=== PATIENT | female | born 1995 | race African-American/Black ===

== ENCOUNTER 2019-12-16 13:10 | Outpatient (CLI) | payer OTHER, SELFPAY ==
[2019-12-16 14:45] LABS: HIV 1/2 Ab P24 Ag Result Negative (Negative)
[2019-12-16 14:49] LABS: Hepatitis B Surface Antigen Negative (Negative)
[2019-12-16 14:55] LABS: HAV RESULT Negative (Negative); Hepatitis B Core IgM Result Negative (Negative)
[2019-12-16 15:06] LABS: Hepatitis C Virus Antibody Negative (Negative)
[2019-12-17 08:21] LABS: Rapid Plasma Reagin Non-Reactive (NonReactive)
== END 2019-12-16 13:11 | disposition home or self-care (01) ==
LOC: ANHLAB 13:14
PROVIDERS: PCP Internal Medicine; Visit Provider Obstetrics & Gynecology
DX: Z11.3 Encounter for screening for infections with a predominantly sexual mode of transmission (principal)
CPT/HCPCS: 36415; 80074; 86592; 86703; G0432

== ENCOUNTER 2020-05-12 16:08 | Emergency (ER) | payer OTHER, SELFPAY ==
--- NOTE | ~2020-05-12 | CT_ITS ---
EXAMINATION: CT cervical spine wo con DATE: 05/12/2020 17:13 INDICATION: Neck pain TECHNIQUE: Computed tomography (CT) of the cervical spine was performed without intravenous contrast. The dose-length product (DLP) was 531.48 mGy-cm. Automated exposure control and iterative reconstruc tion technique were employed. COMPARISON: 10/19/2014 FINDINGS: There is no fracture, dislocation, or subluxation. The vertebral body heights, alignment, a nd intervertebral disc spaces are normal. The paravertebral soft tissues are unremarkable. The odonto id is intact. IMPRESSION: 1. Normal cervical spine. Reviewed, dictated and finalized at location A. H PATCHER IMPRESSION: 1. Normal cervical spine.
--- NOTE | ~2020-05-12 | XR_ITS ---
EXAMINATION: XR knee RT 3V DATE: 05/12/2020 17:01 INDICATION: Right knee pain TECHNIQUE: Three views of the right knee were obtained. COMPARISON: None. FINDINGS: Alignment is normal. No fracture or osteochondral lesion. Joint spaces are normal with no e rosions. No joint effusion/synovitis. Infrapatellar soft tissue swelling is present. IMPRESSION: 1. No acute osseous abnormality. Reviewed, dictated and finalized at location A. ORAL COUNSELOR
--- NOTE | ~2020-05-12 | XR_ITS ---
EXAMINATION: XR chest 2V DATE: 05/12/2020 17:01 INDICATION: Chest pain TECHNIQUE: PA and lateral views of the chest are obtained. COMPARISON: 03/11/2013 FINDINGS: The lungs are free of acute opacities. There is no pleural effusion or pneumothorax. The ca rdiomediastinal silhouette is normal. The visualized bones and soft tissues are unremarkable. IMPRESSION: 1. No acute cardiopulmonary abnormality. Reviewed, dictated and finalized at location A. O ELECTRIC STATION OPERATOR
[2020-05-12 16:19] VITALS: BP 125/78; PULSE 73; RESP 18; TEMP 36.4; O2SAT 100
[2020-05-12] MEDS: diazePAM (*CRX) 5 MG TABLET PO (16:53)
[2020-05-12] MEDS: IBUPROFEN 600 MG TABLET PO (16:53)
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
== END 2020-05-12 18:04 | disposition home or self-care (01) ==
PROVIDERS: Emergency Provider Emergency Medicine; PCP Internal Medicine
DX: S16.1XXA Strain of muscle, fascia and tendon at neck level, initial encounter (principal); S29.012A Strain of muscle and tendon of back wall of thorax, initial encounter; S80.01XA Contusion of right knee, initial encounter; V48.5XXA Car driver injured in noncollision transport accident in traffic accident, initial encounter
CPT/HCPCS: 71046; 72125; 73562; 99284; A9270

== ENCOUNTER 2020-10-14 20:38 | Emergency (ER) | payer OTHER, SELFPAY ==
[2020-10-14 20:42] VITALS: BP 136/85; PULSE 92; RESP 17; TEMP 36.9; O2SAT 95
--- NOTE | 2020-10-14 20:50 | PC.NURSE ---
Patient states that her boyfriend cheated on her and was diagnosed with an STD and she went to get tested and was negative. Patient states she now has a bump on her vagina. Patient states she did not have any symptoms when she got tested and the results were negative on 09/27/20.
--- NOTE | 2020-10-14 21:34 | ED.GENADULT ---
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 Patient states that she found out her boyfriend have been cheating on her and had been diagnosed with syphilis in the beginning of September she been tested for syphilis as well as other STDs on September 24 that all come back normal she been told to watch for any signs of herpes or any vaginal lesions she states that yesterday she began to notice 2 small lesions on her left inferior labia that were tender and were initially bumps and are now small areas of induration she states they are tender she denies any other vaginal discharge states she is on her menstrual period. She states that her syphilis test and other STD tests all come back negative Related Data Allergies Allergy/AdvReac Type Severity Reaction Status Date / Time No Known Allergies Allergy Verified 10/14/20 20:40 Review of Systems Review of Systems: Narrative: Gen.: Denies fevers or chills ENT: Denies congestion Respiratory: Denies shortness of breath CV: Denies chest pain GI: Denies abdominal pain nausea, emesis see HPI Musculoskeletal: Denies back pain or muscle pain Neuro: Denies headache or weakness Skin: See HPI Except as documented, all other systems reviewed and negative [facility] Past Medical History Medical History (Updated 10/14/20 @ 21:38 by Sukhdeep Maldonado DO) Patient denies significant medical history Social History Social History Smoking status: Never smoker Gender identity (if verbalized by the patient): Female Exam Narrative: Exam Narrative: APPEARANCE: No acute distress, nontoxic, resting in bed EYES: EOMI HEENT: Normocephalic, atraumatic, OMM RESPIRATORY: No respiratory distress Clear to auscultation bilaterally with no rhonchi wheezing or rales. CARDIOVASCULAR: Regular rate and rhythm without murmurs rubs or gallops. ABDOMINAL: Soft, nontender, nondistended, no rebound or guarding : External exam shows 2 small ulcerations in the inferior labia that are tender to palpation the do look consistent with herpes no other lesions seen, document blood in vaginal canal secondary to menstrual cycle no other discharge noted MUSCULOSKELETAl: Moves all extremities. No clubbing, cyanosis or edema. NEURO: Awake and alert. Following commands, speech normal, no focal deficits SKIN:: Warm, dry. 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 Pradhan Discussed with patient results of workup and diagnosis. Discussed need for follow-up with primary care, proper use of medication, and reasons to return to the emergency department. Patient understands and agrees to current treatment plan Vital Signs Vital signs: Vital Signs Temperature 98.5 F 10/14/20 20:42 Pulse Rate 92 10/14/20 20:42 Respiratory Rate 17 10/14/20 20:42 Blood Pressure 136/85 10/14/20 20:42 Pulse Oximetry 95 10/14/20 20:42 Temperature 98.5 F 10/14/20 20:42 Pulse Rate 92 10/14/20 20:42 Respiratory Rate 17 10/14/20 20:42 Blood Pressure 136/85 10/14/20 20:42 Pulse Oximetry 95 10/14/20 20:42 Medical Decision Making Vital Signs Vital Signs: Vital Signs Temperature 98.5 F 10/14/20 20:42 Pulse Rate 92 10/14/20 20:42 Respiratory Rate 17 10/14/20 20:42 Blood Pressure 136/85 10/14/20 20:42 Pulse Oximetry 95 10/14/20 20:42 Temperature 98.5 F 10/14/20 20:42 Pulse Rate 92 10/14/20 20:42 Respiratory Rate 17 10/14/20 20:42 Blood Pressure 136/85 10/14/20 20:42 Pulse Oximetry 95 10/14/20 20:42 Lab Data Labs: UCG Bedside Result Negative
[2020-10-14] MEDS: valACYclovir HCL 500 MG TABLET 1000 MG PO (21:51)
[2020-10-14 21:56] VITALS: BP 128/82; PULSE 68; RESP 20; TEMP 36.6; O2SAT 100
== END 2020-10-14 21:55 | disposition home or self-care (01) ==
PROVIDERS: Emergency Provider Emergency Medicine; PCP Internal Medicine
DX: A60.00 Herpesviral infection of urogenital system, unspecified (principal)
CPT/HCPCS: 81025; 87255; 99283; A9270

== ENCOUNTER 2020-12-20 12:28 | Emergency (ER) | payer OTHER, SELFPAY ==
[2020-12-20 12:50] VITALS: BP 111/80; PULSE 61; RESP 18; TEMP 36.1; O2SAT 100
[2020-12-20 13:19] LABS: Basophils Percent Auto 0.3 % (0.2-1.2); Eosinophils Percent Auto 0.4 % (0-4.4); Hematocrit 41.2 % (37.0-47.0); Hemoglobin 13.5 g/dL (12.0-15.0); Immature Granulocyte Absolute 0.04 K/mm3 (0.00-0.031); Immature Granulocyte Percent A 0.4 % (0-0.5); Lymphocytes Absolute Auto 2.16 K/mm3 (0.9-3.2); Lymphocytes Percent Auto 20.1 % (18.3-44.2); Mean Corpuscular HGB Conc 32.8 g/dl (32-36); Mean Corpuscular Hemoglobin 30.6 pg (26-34); Mean Corpuscular Volume 93.4 fl (80-100); Mean Platelet Volume 10.4 fl (7.4-10.4); Monocytes Absolute Auto 0.6 K/mm3 (0.1-0.6); Monocytes Percent Auto 5.7 % (2.6-8.5); Neutrophils Absolute Auto 7.9 K/mm3 (1.3-6.7); Neutrophils Percent Auto 73.1 % (45.5-73.1); Platelet Count Result 304 k/mm3 (150-375); Red Blood Count 4.41 M/mm3 (4.2-5.4); Red Cell Distribution Width 12.5 % (11.5-14.5); White Blood Count 10.7 K/mm3 (4.5-10.0)
[2020-12-20 13:35] LABS: Alanine Aminotransferase 16 U/L (4-35); Albumin Level 4.3 g/dL (3.5-5.1); Alkaline Phosphatase 87 U/L (38-126); Anion Gap 7 mmol/L (8-16); Aspartate Amino Transferase 22 U/L (14-36); Bilirubin,Total 0.7 mg/dL (0.2-1.3); Blood Urea Nitrogen 8 mg/dL (7-17); Calcium 9.1 mg/dL (8.4-10.2); Carbon Dioxide 21 mmol/L (22-30); Chloride 107 mmol/L (98-107); Estimated CRCL calculation 133 ml/min; Estimated Glomerular Filt Rate > 60; Glucose 91 mg/dL (65-110); Lipase 74 U/L (23-300); Potassium 3.9 mmol/L (3.4-5.0); Sodium 135 mmol/L (137-145)
[2020-12-20 13:46] LABS: Add Urine Microscopic? YES; Appearance Urine Clear (Clear); Bacteria Urine Trace /hpf; Bilirubin Urine Negative (Negative); Blood Urine Negative (Negative); Color Urine Yellow (Yellow); Glucose Urine UA Negative (Negative); Ketones Urine Negative (Negative); Leukocyte Esterase Ur Negative LEU/UL (Negative); Mucus Urine Rare /lpf; Nitrate Urine Negative (Negative); Protein Urine Negative (Negative); RBC Urine 0-2 /hpf (0-2); Specific Grav Ur 1.023 (1.001-1.035); Squamous Epithelial Cell Urine Rare /hpf (Few); WBC Urine 0-3 /hpf
--- NOTE | 2020-12-20 13:59 | PC.NURSE ---
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 I will have to come back later. Pt walked out the door with steady gait.
== END 2020-12-20 13:59 | disposition left against medical advice (07) ==
PROVIDERS: Emergency Provider Emergency Medicine; PCP Internal Medicine
DX: R10.9 Unspecified abdominal pain (principal)
CPT/HCPCS: 36415; 80053; 81001; 81025; 83690; 85025; 96365; 96375; 99199; 99284

== ENCOUNTER 2020-12-20 15:44 | Emergency (ER) | payer OTHER, SELFPAY ==
--- NOTE | ~2020-12-20 | US_ITS ---
EXAMINATION: US OB <= 14 weeks fetus DATE: 12/20/2020 17:55 INDICATION: Abdominal pain during first trimester of . TECHNIQUE: Real-time pelvic ultrasound utilizing transabdominal probe was performed. The jamie herrera radiologist was not present for the study. COMPARISON: None. FINDINGS: The uterus measures 8.5 x 4.5 x 5.6 cm. There is an intrauterine gestational sac with double decidua sign but no evident yolk sac or pole identified. The mean sac diameter measures 1.5 cm, which correlates with an estimated gestational age of 6 weeks and 1 days. The right ovary measures 2.2 x 2.0 x 1.3 cm. The left ovary measures 2.7 x 2.0 x 2.4 cm. There is no free fluid in the pelvis. IMPRESSION: 1. Intrauterine gestational sac with no evident yolk sac or pole likely due to early stage of p regnancy. 2. Gestational age by ultrasound based on mean sac diameter of 6 weeks 1 day(s) +/- 4 day(s) with ul trasound estimated date of delivery ([facility]) of 08/14/2021. Reviewed, dictated and finalized at location A. IMPRESSION: 1. Intrauterine gestational sac with no evident yolk sac or pole likely d ue to early stage of . 2. Gestational age by ultrasound based on mean sac diameter of 6 weeks 1 day(s ) +/- 4 day(s) with ultrasound estimated date of delivery ([place]E) of 08/14/2021.
[2020-12-20 15:46] VITALS: BP 131/85; PULSE 87; RESP 16; TEMP 37.3; O2SAT 97
--- NOTE | 2020-12-20 17:44 | ED.NAVMDI ---
HPI - Nausea/Vomiting/Diarrhea General Chief complaint: Nausea/Vomiting/Diarrhea Stated complaint: abd pain, return from earlier Time Seen by Provider: 12/20/20 17:17 Source: RN notes reviewed History of Present Illness HPI Narrative: Patient presents to emergency department from home for nausea vomiting. Patient states that she has been having nausea vomiting for the past 2 days been associated with abdominal pain that is located around the umbilicus described as aching in nature patient states she is had no diarrhea she denies any fever chills chest pain or shortness of breath. Patient states she does have a possibility of being she had been seen here earlier today and had to leave prior to being seen and returned this evening for further evaluation she states she took no medications at home for the symptoms. Patient states last menstrual cycle was in early November Related Data Allergies Allergy/AdvReac Type Severity Reaction Status Date / Time No Known Allergies Allergy Verified 12/20/20 17:27 Review of Systems Review of Systems: Gen.: Denies fevers or chills ENT: Denies congestion Respiratory: Denies shortness of breath or cough CV: Denies chest pain or palpitations GI: See HPI denies burning, urgency, frequency or hematuria Musculoskeletal: Denies back pain or muscle pain Neuro: Denies numbness, tingling, weakness or focal weakness Skin: Denies rash Except as documented, all other systems reviewed and negative [facility] Past Medical History Medical History Patient denies significant medical history Social History Social History Smoking status: Never smoker Gender identity (if verbalized by the patient): Female Exam Narrative: APPEARANCE: No acute distress, nontoxic, resting in bed HEENT: Normocephalic, atraumatic, OMM RESPIRATORY: No respiratory distress, clear to auscultation bilaterally with no rhonchi wheezing or rales CARDIOVASCULAR: RRR s murmur ABDOMINAL: Soft nondistended tender to palpation in periumbilical region no hernias palpated, no tenderness right upper quadrant, left upper quadrant, right lower quadrant left lower quadrant no rebound or guarding MUSCULOSKELETAl: Moves all extremities. No clubbing, cyanosis or edema. NEURO: Awake and alert. Following commands, speech normal, no focal deficits SKIN:: Warm, dry. Normal Color PSYCHIATRIC: Normal affect/mood Course Course Emergency Course: Reviewed patient's records from her visit earlier today positive bedside at that time. Patient denies any vaginal bleeding Patient states she is feeling much better at this time repeat abdominal exam is soft nontender patient able to drink in ED with no emesis Discussed with Dr. Jaden Pradhan presentation work-up agrees with plan for discharge to follow-up as an outpatient there is a plan for Phenergan at home Patient states that they are feeling much better at this time. States abdominal pain has resolved. Repeat abdominal exam shows the patient's abdomen to be soft and nontender. Discussed with patient results of workup and diagnosis. Discussed need for follow-up with primary care physician, reasons to return to the emergency department in proper use of medication. Patient understands and agrees to current treatment plan Vital Signs Vital signs: Vital Signs Temperature 99.2 F 12/20/20 15:46 Pulse Rate 87 12/20/20 15:46 Respiratory Rate 16 12/20/20 15:46 Blood Pressure 131/85 12/20/20 15:46 Pulse Oximetry 97 12/20/20 15:46 Temperature 99.2 F 12/20/20 15:46 Pulse Rate 87 12/20/20 15:46 Respiratory Rate 16 12/20/20 15:46 Blood Pressure 131/85 12/20/20 15:46 Pulse Oximetry 97 12/20/20 15:46 MDM - Nausea/Vomiting/Diarrhea Lab Data Labs: Lab Results 12/20/20 Range/Units 17:57 Urine Test Positive Imaging Data [facility]iol[facility]
[2020-12-20] MEDS: SODIUM CHLORIDE 0.9% IV 1,000 ML 999 ML IV CONT (18:03)
[2020-12-20] MEDS: PROMETHAZINE HCL 25 MG/ML AMPUL 12.5 MG IV PUSH (18:03)
--- NOTE | 2020-12-20 18:16 | PC.NURSE ---
first saida iv tylenol dropped by rn
[2020-12-20 18:21] LABS: Pregnancy On Board Control Positive; Urine Pregnancy Test Positive
[2020-12-20] MEDS: FAMOTIDINE 20 MG/2 ML VIAL IV PUSH (19:15)
[2020-12-20 20:40] VITALS: BP 126/80; PULSE 84; RESP 16; TEMP 36.8; O2SAT 99
== END 2020-12-20 20:40 | disposition home or self-care (01) ==
PROVIDERS: Emergency Provider Emergency Medicine; PCP Internal Medicine
DX: O21.9 Vomiting of pregnancy, unspecified (principal); O26.891 Other specified pregnancy related conditions, first trimester; R10.33 Periumbilical pain; Z3A.01 Less than 8 weeks gestation of pregnancy
CPT/HCPCS: 36415; 76801; 80053; 81001; 81025; 83690; 84702; 85025; 96365; 96375; 99199; 99284; J0131; J2550; J7030

== ENCOUNTER 2021-02-28 15:39 | Outpatient (CLI) | payer OTHER, SELFPAY ==
[2021-03-07 14:29] LABS: HSV 1 IgM Screen Negative (Negative); HSV 2 IgM Screen Negative (Negative)
== END 2021-02-28 15:40 | disposition home or self-care (01) ==
LOC: ANHLAB 15:41
PROVIDERS: PCP Internal Medicine; Visit Provider Obstetrics & Gynecology
DX: Z11.3 Encounter for screening for infections with a predominantly sexual mode of transmission (principal)
CPT/HCPCS: 36415; 86695; 86696

== ENCOUNTER 2021-03-31 14:28 | Observation (INO) | payer OTHER, SELFPAY ==
[2021-03-31] VITALS (7 sets, daily range): BP systolic 113; BP diastolic 59; PULSE 72–86; O2SAT 100; BMI 43.9
--- NOTE | 2021-03-31 15:50 | OBADM ---
This patient, Nubia Yeager, admitted to the OB room OB Post 116 for observation. Patient/family oriented to hospital policies and general routines including ID bracelet, bed and alarms, visiting hours, pain management, procedures, bathroom and other care routines, personal items, smoking policy, room service/diet, and visiting hours. Patient/Family are encouraged to report perceived risks to care and to ask questions if they do not understand what they are told or what they should do.
--- NOTE | 2021-03-31 16:05 | PC.NURSE ---
1535--Dr. Pradhan at bedside. Plan of care discussed-US discussed. PT reports bleeding has stopped and is scheduled for an US in office on Friday. Pt reminded to call/come in to hospital if bleeding starts again.
--- NOTE | 2021-04-10 16:25 | PM.OBTRLD ---
OB - Triage/Final Diagnosis Visit Information Reason for evaluation: threatened labor Comments/Additional reasons for admission: I have assessed the risk for this patient, Nubia Yeager, and determined that she would benefit from observation care.
== END 2021-03-31 16:16 | disposition home or self-care (01) ==
LOC: ANHOBPP 14:54
PROVIDERS: Admitting Provider Obstetrics & Gynecology; PCP Internal Medicine; Visit Provider Obstetrics & Gynecology
DX: O47.9 False labor, unspecified (principal); Z3A.00 Weeks of gestation of pregnancy not specified
CPT/HCPCS: G0378; G0379

== ENCOUNTER 2021-04-12 08:28 | Outpatient (CLI) | payer OTHER, SELFPAY ==
[2021-04-12 10:21] LABS: Hematocrit 34.2 % (37.0-47.0); Hemoglobin 11.9 g/dL (12.0-15.0); Mean Corpuscular HGB Conc 34.8 g/dl (32-36); Mean Corpuscular Hemoglobin 32.9 pg (26-34); Mean Corpuscular Volume 94.5 fl (80-100); Mean Platelet Volume 10.4 fl (7.4-10.4); Platelet Count Result 250 k/mm3 (150-375); Red Blood Count 3.62 M/mm3 (4.2-5.4); White Blood Count 16.1 K/mm3 (4.5-10.0)
[2021-04-12 10:36] LABS: Creatinine Urine 142.9 mg/dL; Total Protein Urine Random 7 mg/dL; Ur Ttl Prot Creatinine Ratio 0.05 mg/mg (0-0.20)
[2021-04-12 10:36] LABS: Alanine Aminotransferase 11 U/L (4-35); Albumin Level 3.7 g/dL (3.5-5.1); Alkaline Phosphatase 70 U/L (38-126); Anion Gap 7 mmol/L (8-16); Aspartate Amino Transferase 18 U/L (14-36); Bilirubin,Total 0.3 mg/dL (0.2-1.3); Blood Urea Nitrogen 7 mg/dL (7-17); Calcium 8.6 mg/dL (8.4-10.2); Carbon Dioxide 19 mmol/L (22-30); Chloride 105 mmol/L (98-107); Estimated Glomerular Filt Rate > 60; Glucose 134 mg/dL (65-110); Glucose 1 Hour PP 50gm Dose 134 mg/dL; Lactate Dehydrogenase 391 U/L (313-618); Potassium 3.7 mmol/L (3.4-5.0); Sodium 131 mmol/L (137-145)
[2021-04-12 11:11] LABS: Hepatitis B Surface Antigen Negative (Negative)
[2021-04-12 11:14] LABS: HIV 1/2 Ab P24 Ag Result Negative (Negative)
[2021-04-12 16:30] LABS: Rubella IgG Antibody > 120.0 IU/ML
[2021-04-13 06:39] LABS: Rapid Plasma Reagin Non-Reactive (NonReactive)
[2021-04-15 18:39] LABS: CMV IgG Antibody >10.00 U/mL (<0.60)
[2021-04-17 12:52] LABS: Varicella IgG Antibody <135.00 Index (>=165.00)
[2021-04-22 14:28] LABS: CF Result NEGATIVE (NEGATIVE); Ethnicity NG
== END 2021-04-12 08:29 | disposition home or self-care (01) ==
PROVIDERS: PCP Internal Medicine; Visit Provider Obstetrics & Gynecology
DX: Z34.92 Encounter for supervision of normal pregnancy, unspecified, second trimester (principal)
CPT/HCPCS: 36415; 80053; 81220; 81329; 82570; 82947; 83615; 84156; 84550; 84702; 85027; 86592; 86644; 86695; 86696; 86703; 86747; 86762; 86787; 86850; 86900; 86901; 87086; 87340; G0432

== ENCOUNTER 2021-06-25 17:11 | Outpatient (RCR) | payer OTHER, SELFPAY ==
[2021-06-25 18:15] VITALS: BP 108/64; PULSE 88
== END 2021-09-17 08:59 | disposition home or self-care (01) ==
LOC: ANHOBOP 17:11
PROVIDERS: PCP Internal Medicine; Visit Provider Obstetrics & Gynecology
DX: O36.8130 Decreased fetal movements, third trimester, not applicable or unspecified (principal); Z3A.32 32 weeks gestation of pregnancy
CPT/HCPCS: 36415; 59025; 85461

== ENCOUNTER 2021-07-05 10:28 | Outpatient (RCR) | payer OTHER, SELFPAY ==
[2021-07-04 11:53] LABS: Hematocrit 36.7 % (37.0-47.0); Hemoglobin 12.2 g/dL (12.0-15.0); Mean Corpuscular HGB Conc 33.2 g/dl (32-36); Mean Corpuscular Volume 96.3 fl (80-100); Mean Platelet Volume 10.2 fl (7.4-10.4); Platelet Count Result 247 k/mm3 (150-375); Red Blood Count 3.81 M/mm3 (4.2-5.4); Red Cell Distribution Width 12.5 % (11.5-14.5); White Blood Count 14.4 K/mm3 (4.5-10.0)
[2021-07-04 12:24] LABS: Glucose 1 Hour PP 50gm Dose 124 mg/dL
[2021-07-04 14:30] LABS: HIV 1/2 Ab P24 Ag Result Negative (Negative)
[2021-07-05] MEDS: RHO(D) IMMUNE GLOBULIN 300 MCG/2 ML SYRINGE IM (11:50)
== END 2021-07-05 11:00 | disposition home or self-care (01) ==
LOC: ANHLAB 10:28
PROVIDERS: PCP Internal Medicine; Visit Provider Obstetrics & Gynecology
DX: Z11.4 Encounter for screening for human immunodeficiency virus [HIV] (principal); Z29.13 Encounter for prophylactic Rho(D) immune globulin; O36.0190 Maternal care for anti-D [Rh] antibodies, unspecified trimester, not applicable or unspecified; Z3A.00 Weeks of gestation of pregnancy not specified
CPT/HCPCS: 36415; 82947; 85027; 85461; 86703; 90384; 96372; G0432; J2790

== ENCOUNTER 2021-08-09 18:25 | Inpatient (IN) | payer OTHER, SELFPAY ==
[2021-08-09] VITALS (15 sets, daily range): BP systolic 111–136; BP diastolic 72–93; PULSE 69–84; BMI 49.1
--- NOTE | 2021-08-09 18:47 | LDADM ---
This patient, Nubia Yeager, was admitted to Labor/Delivery/Recovery 109 on 08/09/21 at 18:25. Plans for labor, pain management and were discussed with patient. Patient/family oriented to hospital policies and general routines including ID bracelet, bed and alarms, visiting hours, pain management, procedures, bathroom and other care routines, personal items, smoking policy, room service/diet and guest tray routines, security routines, and visiting hours. Patient/Family are encouraged to report perceived risks to care and to ask questions if they do not understand what they are told or what they should do. See OBIX for further documentation.
[2021-08-09] MEDS: DINOPROSTONE 10 MG VAG INSERT VAGINAL (19:10)
[2021-08-09 19:13] LABS: Basophils Percent Auto 0.2 % (0.2-1.2); Eosinophils Percent Auto 0.3 % (0-4.4); Hematocrit 38.8 % (37.0-47.0); Hemoglobin 12.8 g/dL (12.0-15.0); Immature Granulocyte Absolute 0.08 K/mm3 (0.00-0.031); Immature Granulocyte Percent A 0.6 % (0-0.5); Lymphocytes Percent Auto 16.5 % (18.3-44.2); Mean Corpuscular Hemoglobin 31.4 pg (26-34); Mean Corpuscular Volume 95.3 fl (80-100); Mean Platelet Volume 10.9 fl (7.4-10.4); Monocytes Absolute Auto 0.8 K/mm3 (0.1-0.6); Monocytes Percent Auto 6.1 % (2.6-8.5); Neutrophils Absolute Auto 10.2 K/mm3 (1.3-6.7); Neutrophils Percent Auto 76.3 % (45.5-73.1); Platelet Count Result 280 k/mm3 (150-375); Red Blood Count 4.07 M/mm3 (4.2-5.4); Red Cell Distribution Width 12.5 % (11.5-14.5); White Blood Count 13.3 K/mm3 (4.5-10.0)
[2021-08-10] VITALS (136 sets, daily range): BP systolic 62–145; BP diastolic 12–112; PULSE 54–169; RESP 18; TEMP 36.3–37; O2SAT 58–100
[2021-08-10] MEDS: fentaNYL CITRATE INJ (*CRX) 100 MCG/2 ML VIAL 50 MCG IV PUSH (02:15)
[2021-08-10] MEDS: fentaNYL CITRATE INJ (*CRX) 100 MCG/2 ML VIAL IV PUSH (04:37)
[2021-08-10] MEDS: OXYTOCIN 30 UNITS/NS 500 ML 30 UNITS/500 ML BAG IV CONT (05:17)
[2021-08-10] MEDS: LACTATED RINGERS 1,000 ML 125 ML IV CONT ×3 (05:18→08:20)
--- NOTE | 2021-08-10 05:22 | WPDANESEPP ---
Anes - Eval Pre Procedure Procedure: labor epidural Date/Time: 08/10/21 05:22 Surgeon: janessa Pre Op Diagnosis: IOL Patient Data Age: 26 Gender: F Height: 1.52 m Weight: 114.3 kg Last Vital Signs Pulse 69 08/10/21 05:16 BP 118/99 H 08/10/21 05:16 Allergies Allergy/AdvReac Type Severity Reaction Status Date / Time No Known Allergies Allergy Verified 08/09/21 14:00 Home Medications Medication Instructions Recorded Confirmed Type vitamins no.68-iron 28 1 cap PO DAILY 05/29/21 08/09/21 History mg-folate no.6 1 mg-dha 400 mg capsule valacyclovir 500 mg tablet 500 mg PO Q12H #90 tablet 07/11/21 08/09/21 Rx Laboratory Tests 08/09/21 08/09/21 08/09/21 18:50 18:50 18:50 WBC 13.3 K/mm3 H K/mm3 (4.5-10.0) RBC 4.07 M/mm3 L M/mm3 (4.2-5.4) Hgb 12.8 g/dL g/dL (12.0-15.0) Hct 38.8 % % (37.0-47.0) MCV 95.3 fl fl (80-100) MCH 31.4 pg pg (26-34) MCHC 33.0 g/dl g/dl (32-36) RDW 12.5 % % (11.5-14.5) Plt Count 280 k/mm3 k/mm3 (150-375) MPV 10.9 fl H fl (7.4-10.4) Immature Gran % (Auto) 0.6 % H % (0-0.5) Neut % (Auto) 76.3 % H % (45.5-73.1) Lymph % (Auto) 16.5 % L % (18.3-44.2) [place] % (Auto) 6.1 % % (2.6-8.5) Eos % (Auto) 0.3 % % (0-4.4) Baso % (Auto) 0.2 % % (0.2-1.2) Lymph # (Auto) 2.20 K/mm3 K/mm3 (0.9-3.2) [place] # (Auto) 0.8 K/mm3 H K/mm3 (0.1-0.6) Eos # (Auto) 0.0 K/mm3 K/mm3 (0-0.3) Baso # (Auto) 0.0 K/mm3 K/mm3 (0.0-0.1) Abs Immat Gran (auto) 0.08 K/mm3 H K/mm3 (0.00-0.031) Absolute Neuts (auto) 10.2 K/mm3 H K/mm3 (1.3-6.7) Absolute Nucleated RBC 0.0 K/mm3 K/mm3 (0.0-0.012) Nucleated RBC % 0.0 % % (0.0-0.2) RPR Pending Blood Type B Negative Antibody Screen Positive Antibody Identification Passive Due to RH Imm Glob Antigen Identification Not Reportable JACK, IgG Interpret Not Performed JACK, Poly Interpret Negative JACK, Complement Interp Not Performed Patient hx anesthesia problems: none Family hx anesthesia problems: none Results Review: All pre-operative results and documents have been reviewed as part of the pre-operative evaluation. [facility] Past Medical History Medical History HSV-2 infection Hypertension affecting Patient denies significant medical history Surgical History Surgical History History of gynecological procedure (03/07/17) Suction D&C missed AB ; POC trophoblastic villi present History of gynecological procedure (09/30/16) nexplanon removal History of gynecological procedure (10/13/13) nexplanon insertion Hx of cholecystectomy (11/03/18) Family History Family History Grandparent Diabetes mellitus maternal grandmother Hypertension maternal grandmother Other Cerebrovascular accident maternal Uncle Social History Social History Smoking status: Never smoker Alcohol intake: never Substance use: never Substance use type: does not use Gender identity (if verbalized by the patient): Female Sexual Orientation (if Verbalized by the Patient): Straight or Heterosexual Spiritual care concerns: No Exam Day of Procedure 08/10/21 05:22 Patient weight: morbidly obese Heart: regular rate and rhythm Lungs: normal air movement Airway: Mallampati scale class III Neurological: alert and oriented
[2021-08-10] MEDS: PHENYLEPHRINE 1,000 MCG/10 ML SYRINGE 100 MCG IV PUSH ×5 (06:20→07:01)
[2021-08-10] MEDS: ePHEDrine sulfate INJ 50 MG/ML AMPUL IV PUSH (06:58)
--- NOTE | 2021-08-10 09:56 | PM.OBPRVD ---
OB - Delivery Note Procedure Intrapartal Events: Other ( Meconium-stained amniotic fluid) Induction method: Per Pitocin Protocol and Per Cervidil Protocol Delivery augmentation: Rupture of Membranes Delivery monitor: Internal FHT and Internal Uterine Route of delivery: Episiotomy description: None Laceration Description: None Specimen: Yes Quantitative Blood Loss (ml): 200 Anesthesia type: Epidural Disposition: Floor Narrative: Patient prepped and draped in usual manner for this procedure. Maternal expulsive efforts delivered vertex with nuchal cord noted and readily reduced. Rest of baby was delivered without difficulty. Cord clamped cut placenta delivered spontaneously. Cervix vagina vulva were inspected no lacerations or tears. Baby Weeks of gestation at delivery: 39 Infant gender: Male presentation: vertex Placenta delivery description: Spontaneous Cord Vessel Description: 3 Vessels and Nuchal Cord score one minute: 8 score five minutes: 9 AMG Delivery Billing Delivery Delivery: Delivery Charge
--- NOTE | 2021-08-10 10:00 | WPDHPUPDATE1 ---
History and Physical Update Update Date/Time: 08/10/21 10:00 History and Physical has been reviewed, including an updated exam of the patient. There are NO changes in the patient's condition. Risks, benefits, and alternatives have been discussed and questions answered. Patient agrees to proceed with procedure.
--- NOTE | 2021-08-10 10:01 | WPDOBADMIT ---
Obstetrics - Admit Note Admission Note: record reviewed. No pertinent additions to the history and/or any subsequent changes in the physical findings that are not consistent with the expected course of the were found. Additions to the history and/or subsequent changes in the physical findings follow. None.
--- NOTE | 2021-08-10 10:02 | P.PCNOB_ITS ---
OB - Delivery Note Procedure Intrapartal Events: Other ( Meconium-stained amniotic fluid) Laceration Description: None Anesthesia type: Epidural [place] Baby Weeks of gestation at delivery: 39 Infant gender: Male Weight (pounds): 6 Weight (ounces): 3 presentation: vertex Placenta delivery description: Spontaneous Cord Vessel Description: 3 Vessels and Nuchal Cord score one minute: 8 score five minutes: 9 AMG Delivery Billing Delivery Delivery: Delivery Charge
[2021-08-10] MEDS: OXYTOCIN 30 UNITS/NS 500 ML 30 UNITS/500 ML BAG 125 UNITS IV CONT (10:21)
[2021-08-10 11:12] LABS: Rapid Plasma Reagin Non-Reactive (NonReactive)
[2021-08-10] MEDS: WITCH HAZEL 40 PADS 1 PAD TOPICAL (11:32)
[2021-08-10] MEDS: BENZOCAINE 20% AER SPR (*SP) 56 GM CAN 1 SPRAY TOPICAL (11:32)
--- NOTE | 2021-08-10 12:15 | PC.NURSE ---
Patient transferred to post room #281 per wheelchair. Support person present. Oriented to unit, room, information board, rooming in, admission packet and security measures. Patient verbalizes understanding.
[2021-08-10] MEDS: IBUPROFEN 600 MG TABLET PO (14:02)
[2021-08-10] MEDS: DOCUSATE SODIUM 100 MG CAPSULE PO (16:41)
[2021-08-10] MEDS: ACETAMINOPHEN 325 MG TABLET 650 MG PO (21:03)
[2021-08-11] MEDS: IBUPROFEN 600 MG TABLET PO ×2 (04:07→14:07)
[2021-08-11 04:10] VITALS: BP 138/96; PULSE 63; RESP 18; TEMP 36.4; O2SAT 100
[2021-08-11 08:00] VITALS: PULSE 74; RESP 16; O2SAT 100
[2021-08-11 08:37] LABS: Hematocrit 38.2 % (37.0-47.0); Hemoglobin 12.5 g/dL (12.0-15.0)
[2021-08-11 08:54] VITALS: BP 125/86; PULSE 74; RESP 16; TEMP 36.8; O2SAT 100
--- NOTE | 2021-08-11 09:33 | PM.OBDSVD ---
DS: Admitting Diagnosis Discharge Date 08/11/2021 Admitting Diagnosis OB - DS: Summary OB Procedures : None OB Procedures Intrapartum: Spontaneous Vag Delivery OB Procedures: : None Time Spent with Patient Time attestation: Total time spent providing and/or coordinating discharge services: DS: Data Data Completed and Pending Pending studies at discharge: Pending at discharge 08/10/21 09:48 Surgical [PTH] Routine Labs on day of discharge: Labs from last 24 hours 08/11/21 08/09/21 08:21 18:50 Hgb 12.5 Hct 38.2 RPR Non-reactive Discharge Plan Discharge Discharging Clinician: Jed Pradhan Patient Disposition: Home, Self-Care Activity: as tolerated Diet: as tolerated Patient Instructions: Antibiotic Form Stand Alone Forms: General Discharge Information Follow-up/Referrals: Jed Pradhan MD [Physician] - 3 Weeks Discharge Medications: New ibuprofen 600 mg Tablet 600 mg PO Q6H PRN (Reason: Cramping) Qty: 30 RF: 0 Continued valacyclovir [Valtrex] 500 mg tablet 500 mg PO Q12H Qty: 90 RF: 1 [id number] no6-dha 28 mg iron- 1 mg-400 mg capsule 1 cap PO DAILY RF: 0 Date of admission: 08/09/21 18:25 Primary Care Provider: KyleOtto Admitting Provider: Jed Pradhan Attending physician on admission: Jed Pradhan Condition: Stable
--- NOTE | 2021-08-11 11:33 | PC.NURSE ---
Patient was given the opportunity to view the discharge video [facility], The First Two Weeks and to ask questions. Patient declined viewing the video and has been given the mother/baby guide for home reference.
[2021-08-11] MEDS: RHO(D) IMMUNE GLOBULIN 300 MCG/2 ML SYRINGE IM (14:48)
[2021-08-13 11:28] VITALS: BP 131/82; PULSE 92; RESP 20; TEMP 36.9; O2SAT 100
== END 2021-08-11 17:05 | disposition home or self-care (01) | DRG 560 ==
LOC: ANHLDR 08-10 09:28 → ANHOB2 08-10 12:25
PROVIDERS: Admitting Provider Obstetrics & Gynecology; PCP Internal Medicine; Visit Provider Obstetrics & Gynecology
DX: O77.0 Labor and delivery complicated by meconium in amniotic fluid (principal); O69.81X0 Labor and delivery complicated by cord around neck, without compression, not applicable or unspecified; O76 Abnormality in fetal heart rate and rhythm complicating labor and delivery; Z3A.39 39 weeks gestation of pregnancy; Z37.0 Single live birth
CPT/HCPCS: 36415; 85014; 85018; 85025; 85461; 86592; 86850; 86880; 86900; 86901; 86902; 88307; 90384; A9270; J2370; J2590; J2790; J2795; J3010; J7120

== ENCOUNTER 2022-05-16 21:15 | Emergency (ER) | payer OTHER, SELFPAY ==
[2022-05-16 21:21] VITALS: BP 130/95; PULSE 71; RESP 18; TEMP 36.5; O2SAT 99
--- NOTE | 2022-05-17 00:46 | PC.NURSE ---
patient left at this time due to wait time
== END 2022-05-17 01:03 | disposition left against medical advice (07) ==
PROVIDERS: PCP Internal Medicine
DX: M25.562 Pain in left knee (principal); M25.561 Pain in right knee
CPT/HCPCS: 99199

== ENCOUNTER 2022-05-17 14:33 | Emergency (ER) | payer OTHER, SELFPAY ==
[2022-05-17 14:44] VITALS: BP 134/100; PULSE 85; RESP 14; TEMP 36.1; O2SAT 100
--- NOTE | 2022-05-17 15:55 | ED.EXTPRO ---
HPI - Extremity Problem General Chief complaint: Extremity Problem,Nontraumatic Stated complaint: bilateral knee pain, Time Seen by Provider: 05/17/22 15:24 History of Present Illness HPI Narrative: Patient is a 27-year-old female presenting with bilateral knee pain. Patient states that she works at [employer] and has a physically demanding job. States that she is often standing for long hours with recurrent bending and lifting of heavy boxes. States that she often has bilateral knee pain that she treats by soaking in warm baths. States that yesterday she had bilateral knee pain so she tried to soak them but the pain continued. States that if she is just sitting still then she does not have any knee pain but bending or walking causes severe pain. She denies calf swelling or redness. She denies recent injuries. She has not tried any Tylenol or ibuprofen. She denies chest pain, shortness of breath, lightheadedness. Denies further complaints. Related Data Allergies Allergy/AdvReac Type Severity Reaction Status Date / Time No Known Allergies Allergy Verified 05/17/22 15:25 Review of Systems Review of Systems: All systems reviewed & are unremarkable except as noted in HPI and below PMFSH Past Medical History Medical History HSV-2 infection Hypertension affecting Patient denies significant medical history Surgical History Surgical History History of gynecological procedure (03/07/17) Suction D&C missed AB ; POC trophoblastic villi present History of gynecological procedure (09/30/16) nexplanon removal History of gynecological procedure (10/13/13) nexplanon insertion Hx of cholecystectomy (11/03/18) Family History Family History Grandparent Diabetes mellitus maternal grandmother Hypertension maternal grandmother Other Cerebrovascular accident maternal Uncle Social History Social History Smoking status: Never smoker Alcohol intake: never Substance use: never Substance use type: does not use Additional living arrangements comments: single Gender identity (if verbalized by the patient): Female Sexual Orientation (if Verbalized by the Patient): Straight or Heterosexual Spiritual care concerns: No Exam Narrative: GENERAL: Well-appearing, well-nourished, and in no acute distress. HEAD: Normocephalic, atraumatic. EYES: PERRLA and EOMI. ENT: Nares clear, no rhinorrhea or epistaxis. Mucous membranes moist. NECK: Supple. CHEST: No respiratory distress. HEART: Regular rate and rhythm. ABDOMEN: Soft, nondistended EXTREMITIES: Normal range of motion. No edema. Tenderness of bilateral knees along medial and lateral aspects SKIN: Warm, dry, no rash. NEURO: No focal deficits. Alert and oriented x3. PSYCH: Normal mood and affect. Course Vital Signs Vital signs: Vital Signs Temperature 97.0 F L 05/17/22 14:44 Pulse Rate 85 05/17/22 14:44 Respiratory Rate 14 05/17/22 14:44 Blood Pressure 134/100 H 05/17/22 14:44 Pulse Oximetry 100 05/17/22 14:44 Oxygen Delivery Room Air 05/17/22 14:44 Temperature 97.0 F L 05/17/22 14:44 Pulse Rate 85 05/17/22 14:44 Respiratory Rate 14 05/17/22 14:44 Blood Pressure 134/100 H 05/17/22 14:44 Pulse Oximetry 100 05/17/22 14:44 Oxygen Delivery Room Air 05/17/22 14:44 MDM - Extremity (Nontraumatic) MDM Narrative Medical decision making narrative: Patient is a 27-year-old female presenting with bilateral knee pain for about a day. Patient does report a physically demanding job and states that she often has bilateral knee pain. She denies any recent injuries. Exam remarkable for tenderness along lateral and medial aspects of bilateral knees. ROM intact. Neurovascularly int
[2022-05-17] MEDS: ACETAMINOPHEN 500 MG TABLET 1000 MG PO (16:08)
[2022-05-17] MEDS: IBUPROFEN 400 MG TABLET 800 MG PO (16:09)
== END 2022-05-17 16:19 | disposition home or self-care (01) ==
PROVIDERS: Emergency Provider Emergency Medicine; PCP Internal Medicine
DX: M25.562 Pain in left knee (principal); M25.561 Pain in right knee
CPT/HCPCS: 99282; A9270

== ENCOUNTER 2023-09-23 11:05 | Outpatient (CLI) | payer OTHER, SELFPAY ==
[2023-09-23 11:55] LABS: Basophils Percent Auto 0.3 % (0.2-1.2); Eosinophils Absolute Auto 0.1 K/mm3 (0-0.3); Eosinophils Percent Auto 0.4 % (0-4.4); Hemoglobin 11.6 g/dL (12.0-15.0); Immature Granulocyte Absolute 0.08 K/mm3 (0.00-0.031); Immature Granulocyte Percent A 0.6 % (0-0.5); Lymphocytes Absolute Auto 2.31 K/mm3 (0.9-3.2); Lymphocytes Percent Auto 17.9 % (18.3-44.2); Mean Corpuscular HGB Conc 33.1 g/dl (32-36); Mean Corpuscular Hemoglobin 32.8 pg (26-34); Mean Corpuscular Volume 98.9 fl (80-100); Mean Platelet Volume 10.5 fl (7.4-10.4); Monocytes Absolute Auto 0.7 K/mm3 (0.1-0.6); Monocytes Percent Auto 5.4 % (2.6-8.5); Neutrophils Absolute Auto 9.8 K/mm3 (1.3-6.7); Neutrophils Percent Auto 75.4 % (45.5-73.1); Platelet Count Result 251 k/mm3 (150-375); Red Blood Count 3.54 M/mm3 (4.2-5.4); Red Cell Distribution Width 12.3 % (11.5-14.5); White Blood Count 12.9 K/mm3 (4.5-10.0)
[2023-09-23 12:43] LABS: Hepatitis B Surface Antigen Negative (Negative); Rubella IgG Antibody > 110.0 IU/ML
[2023-09-23 12:45] LABS: HIV 1/2 Ab P24 Ag Result Negative (Negative)
[2023-09-23 13:28] LABS: Glucose 1 Hour PP 50gm Dose 133 mg/dL
[2023-09-23 15:07] LABS: Rapid Plasma Reagin Non-Reactive (NonReactive)
[2023-09-24 10:23] LABS: Varicella IgG Antibody <135.00 index
== END 2023-09-23 11:06 | disposition home or self-care (01) ==
LOC: ANHLAB 11:06
PROVIDERS: PCP Internal Medicine; Visit Provider Obstetrics & Gynecology
DX: N91.2 Amenorrhea, unspecified (principal)
CPT/HCPCS: 36415; 82947; 84702; 85025; 86592; 86644; 86703; 86747; 86762; 86787; 86850; 86900; 86901; 87340; G0432

== ENCOUNTER 2023-09-30 14:14 | Observation (INO) | payer OTHER, SELFPAY ==
[2023-09-30 14:31] VITALS: BP 112/60; PULSE 67
[2023-09-30 14:40] VITALS: TEMP 37.2
--- NOTE | 2023-09-30 14:40 | PC.NURSE ---
States has had pain LLQ for 2-3 days. Pain is intermittent and lasts for 2 hours at a time unless she is sleeping. Pt appears comfortable at this time No grimace or tenderness with palpation. PT states she has normal BM and no urinary symptoms. States she has had vomiting intermittent with . Usually vomits every morning. Pt states she does not not feel pain with sleeping.
[2023-09-30 14:45] VITALS: BP 96/69; PULSE 71
[2023-09-30 15:00] VITALS: BP 101/48; PULSE 63
--- NOTE | 2023-09-30 15:15 | PC.NURSE ---
heart rate 145 and no contractions per monitor. Appropriate for gestational age.
[2023-09-30] MEDS: ACETAMINOPHEN 325 MG TABLET 650 MG PO (15:17)
--- NOTE | 2023-09-30 15:45 | PC.NURSE ---
Update to Dr. Pradhan regarding pt concern she has a UTI. UA ordered and pt to follow up with office for results. Pt states pain has improved since taking Tylenol.
[2023-09-30 15:54] LABS: Appearance Urine Clear (Clear); Bilirubin Urine Negative (Negative); Blood Urine Negative (Negative); Color Urine Yellow (Yellow); Glucose Urine UA Negative (Negative); Ketones Urine Negative (Negative); Leukocyte Esterase Ur Negative LEU/UL (Negative); Nitrate Urine Negative (Negative); Protein Urine Negative (Negative); Specific Grav Ur 1.018 (1.001-1.035); pH Urine 7.5 (5.0-9.0)
[2023-09-30 16:07] LABS: Add Urine Microscopic? NO
--- NOTE | 2023-10-01 10:14 | P.PNOB_ITS ---
OB - Triage/Final Diagnosis Visit Information Reason for evaluation: threatened labor Comments/Additional reasons for admission: I have assessed the risk for this patient, Nubia Yeager, and determined that she would benefit from observation care. Evaluation Laboratory results: Laboratory Tests 09/30/23 15:45 Urine Color Yellow Urine Appearance Clear Urine pH 7.5 Ur Specific [place] 1.018 Urine Protein Negative Urine Glucose (UA) Negative Urine Ketones Negative Ur Blood (Man) Negative Urine Nitrate Negative Urine Bilirubin Negative Urine Urobilinogen 1.0 Ur Leukocyte Esterase Negative Vital signs: Vital Signs - 24 hr 09/30/23 14:31 09/30/23 14:45 09/30/23 15:00 Temperature Pulse Rate 67 71 63 Blood Pressure 112/60 96/69 L 101/48 L Oxygen Delivery 09/30/23 14:42 09/30/23 14:40 Temperature 99 F Pulse Rate Blood Pressure Oxygen Delivery Room Air
== END 2023-09-30 16:04 | disposition home or self-care (01) ==
PROVIDERS: Admitting Provider Obstetrics & Gynecology; PCP Internal Medicine; Visit Provider Obstetrics & Gynecology
DX: O47.02 False labor before 37 completed weeks of gestation, second trimester (principal); Z3A.24 24 weeks gestation of pregnancy
CPT/HCPCS: 81003; 87086; A9270; G0378; G0379

== ENCOUNTER 2023-11-14 13:02 | Outpatient (RCR) | payer OTHER, SELFPAY ==
[2023-11-17] MEDS: RHO(D) IMMUNE GLOBULIN 300 MCG/2 ML SYRINGE IM (12:16)
== END 2024-02-12 23:59 | disposition home or self-care (01) ==
LOC: ANHLAB 13:02
PROVIDERS: PCP Internal Medicine; Visit Provider Obstetrics & Gynecology
DX: Z34.90 Encounter for supervision of normal pregnancy, unspecified, unspecified trimester (principal)
CPT/HCPCS: 36415; 85461; 86850; 86900; 86901; 90384; 96372; J2790

== ENCOUNTER 2024-01-03 15:29 | Observation (INO) | payer OTHER, SELFPAY ==
[2024-01-03] VITALS (11 sets, daily range): BP systolic 107–144; BP diastolic 62–88; PULSE 72–95; TEMP 36.6
--- NOTE | ~2024-01-03 | US_ITS ---
EXAMINATION: US OB limited w BPP DATE: 01/03/2024 18:01 INDICATION: CARSON, check placenta; post fall . TECHNIQUE: Real-time ultrasound of the pelvis was performed. COMPARISON: None. FINDINGS: There is a single living fetus in vertex presentation, longitudinal lie. The placenta is posterior. heart rate is 143 bpm. The amniotic fluid index is 4.4 cm, which is low (5th to 95th percentile is 7.3 to 23.9 cm). IMPRESSION: Single living fetus in vertex presentation. Oligohydramnios. Reviewed, dictated and finalized at location K.
--- NOTE | 2024-01-03 15:50 | OBADM ---
This patient, Nubia Yeager, admitted to the OB room OB Post 113 for observation. Patient/family oriented to hospital policies and general routines including ID bracelet, bed and alarms, visiting hours, pain management, procedures, bathroom and other care routines, personal items, smoking policy, room service/diet, and visiting hours. Patient/Family are encouraged to report perceived risks to care and to ask questions if they do not understand what they are told or what they should do.
--- NOTE | 2024-01-03 16:56 | PC.NURSE ---
165--US is not available and will not come in to do a BPP. They will be available in the AM on Friday.
--- NOTE | 2024-01-03 16:57 | PC.NURSE ---
1540--Pt presents with left sided breast pain (muscle pull) type after fall onto side two days prior.
[2024-01-03 17:00] LABS: Basophils Percent Auto 0.3 % (0.2-1.2); Eosinophils Percent Auto 0.2 % (0-4.4); Hematocrit 33.6 % (37.0-47.0); Hemoglobin 11.5 g/dL (12.0-15.0); Immature Granulocyte Absolute 0.07 K/mm3 (0.00-0.031); Immature Granulocyte Percent A 0.6 % (0-0.5); Lymphocytes Absolute Auto 2.12 K/mm3 (0.9-3.2); Lymphocytes Percent Auto 16.9 % (18.3-44.2); Mean Corpuscular HGB Conc 34.2 g/dl (32-36); Mean Corpuscular Hemoglobin 33.3 pg (26-34); Mean Corpuscular Volume 97.4 fl (80-100); Mean Platelet Volume 10.8 fl (7.4-10.4); Monocytes Absolute Auto 0.6 K/mm3 (0.1-0.6); Monocytes Percent Auto 5.1 % (2.6-8.5); Neutrophils Absolute Auto 9.7 K/mm3 (1.3-6.7); Neutrophils Percent Auto 76.9 % (45.5-73.1); Platelet Count Result 238 k/mm3 (150-375); Red Blood Count 3.45 M/mm3 (4.2-5.4); Red Cell Distribution Width 12.3 % (11.5-14.5); White Blood Count 12.6 K/mm3 (4.5-10.0)
--- NOTE | 2024-01-03 17:06 | PC.NURSE ---
1615--Reported on pt to Dr. Ruiz. Orders received.
[2024-01-03 17:10] LABS: INR 1.1; Prothrombin Time 14.4 Seconds (11.1-14.7)
[2024-01-03 17:11] LABS: Partial Thromboplastin Time 27.2 Seconds (22.3-36.8)
--- NOTE | 2024-01-03 19:00 | PC.NURSE ---
1857--Report given to Dr. Ruiz. Orders received to admit patient for Induction of labor.
[2024-01-03] MEDS: RHO(D) IMMUNE GLOBULIN 300 MCG/2 ML SYRINGE IM (21:38)
--- NOTE | 2024-01-29 12:48 | PM.OBTRLD ---
OB - Triage/Final Diagnosis Visit Information Comments/Additional reasons for admission: I have assessed the risk for this patient, Nubia Yeager, and determined that she would benefit from observation care. Evaluation Laboratory results: Laboratory Tests 01/03/24 16:26 WBC 12.6 H RBC 3.45 L Hgb 11.5 L Hct 33.6 L MCV 97.4 MCH 33.3 MCHC 34.2 RDW 12.3 Plt Count 238 MPV 10.8 H Immature Gran % (Auto) 0.6 H Neut % (Auto) 76.9 H Lymph % (Auto) 16.9 L [place] % (Auto) 5.1 Eos % (Auto) 0.2 Baso % (Auto) 0.3 Lymph # (Auto) 2.12 [place] # (Auto) 0.6 Eos # (Auto) 0.0 Baso # (Auto) 0.0 Abs Immat Gran (auto) 0.07 H Absolute Neuts (auto) 9.7 H Absolute Nucleated RBC 0.000 Nucleated RBC % 0.0 PT 14.4 INR 1.1 APTT 27.2 Blood Type B Negative Antibody Screen Positive Antibody Identification Passive Due to RH Imm Glob Antigen Identification Cancelled JACK, IgG Interpret Neg JACK, Poly Interpret Not Performed JACK, Complement Interp Negative Screen Negative Baby's Blood Type Not Reportable Baby's JACK Not Reportable KB Hemoglobin Negative Doses of RhIg Required 1 Final Diagnosis (1) Status post fall: Code(s): Z91.81 - History of falling Status: Acute (2) Oligohydramnios: Code(s): O41.00X0 - Oligohydramnios, unspecified trimester, not applicable or unspecified Status: Acute
== END 2024-01-03 21:45 | disposition home or self-care (01) ==
PROVIDERS: Admitting Provider Obstetrics & Gynecology; PCP Internal Medicine; Visit Provider Obstetrics & Gynecology
DX: O9A.219 Injury, poisoning and certain other consequences of external causes complicating pregnancy, unspecified trimester (principal); W19.XXXA Unspecified fall, initial encounter; O41.00X0 Oligohydramnios, unspecified trimester, not applicable or unspecified
CPT/HCPCS: 36415; 76815; 76819; 84112; 85025; 85460; 85461; 85610; 85730; 86850; 86880; 86900; 86901; 90384; 96372; G0378; G0379; J2790

== ENCOUNTER 2024-01-04 04:35 | Inpatient (IN) | payer OTHER, SELFPAY ==
[2024-01-04] VITALS (102 sets, daily range): BP systolic 56–147; BP diastolic 23–130; PULSE 27–161; RESP 15; TEMP 36.7–36.9; O2SAT 66–100; BMI 44.3
[2024-01-04] MEDS: LACTATED RINGERS 1,000 ML 125 ML IV CONT ×2 (05:33→10:05)
[2024-01-04] MEDS: OXYTOCIN 30 UNITS/NS 500 ML 30 UNITS/500 ML BAG IV CONT (05:34)
[2024-01-04 05:45] LABS: Basophils Percent Auto 0.3 % (0.2-1.2); Eosinophils Percent Auto 0.2 % (0-4.4); Hematocrit 34.2 % (37.0-47.0); Immature Granulocyte Absolute 0.09 K/mm3 (0.00-0.031); Immature Granulocyte Percent A 0.6 % (0-0.5); Lymphocytes Absolute Auto 2.89 K/mm3 (0.9-3.2); Lymphocytes Percent Auto 19.3 % (18.3-44.2); Mean Corpuscular HGB Conc 35.1 g/dl (32-36); Mean Corpuscular Hemoglobin 33.6 pg (26-34); Mean Corpuscular Volume 95.8 fl (80-100); Mean Platelet Volume 11.8 fl (7.4-10.4); Monocytes Absolute Auto 0.9 K/mm3 (0.1-0.6); Monocytes Percent Auto 5.8 % (2.6-8.5); Neutrophils Absolute Auto 11.1 K/mm3 (1.3-6.7); Neutrophils Percent Auto 73.8 % (45.5-73.1); Platelet Count Result 247 k/mm3 (150-375); Red Blood Count 3.57 M/mm3 (4.2-5.4); Red Cell Distribution Width 12.2 % (11.5-14.5)
--- NOTE | 2024-01-04 05:48 | LDADM ---
This patient, Nubia Yeager, was admitted to Labor/Delivery/Recovery 107 on 01/04/24 at 04:35. Plans for labor, pain management and were discussed with patient. Patient/family oriented to hospital policies and general routines including ID bracelet, bed and alarms, visiting hours, pain management, procedures, bathroom and other care routines, personal items, smoking policy, room service/diet and guest tray routines, security routines, and visiting hours. Patient/Family are encouraged to report perceived risks to care and to ask questions if they do not understand what they are told or what they should do. See OBIX for further documentation.
[2024-01-04 06:32] LABS: Rapid Plasma Reagin Non-Reactive (NonReactive)
[2024-01-04 06:39] LABS: HIV 1/2 Ab P24 Ag Result Negative (Negative)
[2024-01-04 06:53] LABS: Amphetamine Screen Urine Negative (Negative); Barbiturate Screen Urine Negative (Negative); Benzodiazepines Screen Urine Negative (Negative); Cannabinoid Screen Urine Positive (Negative); Cocaine Screen Urine Negative (Negative); Methadone Screen Urine Negative (Negative); Opiate Screen Urine Negative (Negative); Phencyclidine Screen Urine Negative (Negative)
--- NOTE | 2024-01-04 15:23 | PM.IMHP ---
H&P: HPI History of Present Illness Date/Time: 01/04/24 15:23 Chief Complaint: oligohydramnioa Narrative: Patient initially presented to L and D on 01/03/24 after having pain under left breast which was present since she had fallen on the left side of adbdomen two days ago. No spotting leaking or cramping after the fall. Reports normal movement. On L and D tracing not reassuring. BPP ordered. BPP not done but CARSON was 4.7. ROM plus neg. Abruption labs neg. KB neg. She was recommended for MIL for oligohydramnios at term. She had to arrange childcare and returned morning of 01/03 for induction. She has h/o hsv 2- she is on Valtrex suppression, declines prodromal symptoms or lesions. Review of Systems Review of Systems: All systems reviewed & are unremarkable except as noted in HPI and below Constitutional: Constitutional: Reports no additional constitutional complaints and Denies headache(s) Eyes: Eyes: Denies spots in vision ENT: Reports system reviewed and no additional complaints, except as documented and Denies headache(s) Cardiovascular: Cardiovascular: Denies chest pain and Denies dyspnea Respiratory: Respiratory: Denies dyspnea Gastrointestinal: Gastrointestinal: Reports no additional gastrointestinal complaints Genitourinary: Genitourinary: Reports amenorrhea Musculoskeletal: Musculoskeletal: Reports no additional musculoskeletal complaints Integumentary/Breasts: Skin/Breast: Denies breast mass and Denies rash Neurologic: Denies headache(s) Psychiatric: Psychiatric: Reports no additional psychiatric complaints PMFSH Past Medical History Medical History Gonorrhea HSV-2 infection Hypertension affecting Patient denies significant medical history Vaginal discharge Surgical History Surgical History History of gynecological procedure (03/07/17) Suction D&C missed AB ; POC trophoblastic villi present History of gynecological procedure (09/30/16) nexplanon removal History of gynecological procedure (10/13/13) nexplanon insertion Hx of cholecystectomy (11/03/18) Family History Family History Grandparent Diabetes mellitus maternal grandmother Hypertension maternal grandmother Other Cerebrovascular accident maternal Uncle Social History Social History Smoking status: Never smoker Second hand tobacco smoke exposure: No Alcohol intake: never Substance use: never Substance use type: does not use Do You Feel Safe in your Home?: Yes Lack of Transportation: YES Lack of Food: Never True Current Housing: I Have Housing Concerned About Future Housing: No Difficulty Paying Gas/Electric Bills: No Difficulty Paying for Meds: No Currently Unemployed: YES Education: Trade/Vocational Certificate Difficulty w/ Childcare or Family Care: No Living arrangements: other Additional living arrangements comments: single Occupation/Education: unemployed Gender identity (if verbalized by the patient): Female Sexual Orientation (if Verbalized by the Patient): Straight or Heterosexual Spiritual care concerns: No Meds Home Medications and Allergies Home Medications Medication Instructions Recorded Confirmed Type vitamins-iron fumarate 65 1 tablet PO DAILY #90 tabs 08/27/23 01/04/24 Rx mg iron-folic acid 1 mg tablet fluconazole 200 mg tablet 200 mg PO DAILY #1 tablet 12/22/23 12/22/23 Rx (Diflucan) valacyclovir 500 mg tablet 1,000 mg PO DAILY #90 tabs 12/25/23 01/04/24 Rx Allergies Allergy/AdvReac Type Severity Reaction Status Date / Time No Known Allergies Allergy Verified 12/30/23 10:03 Vital Signs Vital Signs - 24 hr 01/04/24 05:30 01/04/24 05:46 01/04/24 06:01 Temperature Pu
--- NOTE | 2024-01-04 15:25 | PM.OBPRVD ---
OB - Vaginal Delivery Note Procedure Delivery date: 01/04/24 Events: Oligohydramnios Induction method: Per Misoprostol Protocol Delivery augmentation: Rupture of Membranes Delivery monitor: External FHT and Internal Uterine Route of delivery: Episiotomy description: None Laceration Description: None Quantitative Blood Loss (ml): 150 Anesthesia type: Epidural Disposition: Floor Complications: No immediate complications [place] Baby Date of : 01/04/24 Time of : 15:15 Gestational Age by Date: 38 Infant gender: Female presentation: vertex position: Left Occiput Anterior Placenta delivery description: Spontaneous Cord Vessel Description: 3 Vessels, Nuchal Cord, Tight and Reduced (surgically) score one minute: 9 score five minutes: 9 Narrative: She was admitted the morning of 01/04/24 for MIL for oligohydramnios at term. Cervix favorable. Pitocin started. She had AROM. She progressed to active labor. She had epidural placed on request and she delivered a female infant over intact perineum.Nose and mouth suctioned with perineum. Tight nuchal cord surgically reduced. The shoulders and the rest of the was delivered with gentle traction. was vigorously crying and she was placed on maternal abdomen. Cord gases obtained. Placenta delivered intact with trailing membranes. Loser uterine segment cleared of clots. Uterine tone good. No lacerations. Patient tolerated procedure well.
[2024-01-04] MEDS: OXYTOCIN 30 UNITS/NS 500 ML 30 UNITS/500 ML BAG 125 UNITS IV CONT (15:36)
[2024-01-04] MEDS: WITCH HAZEL 40 PADS 1 PAD TOPICAL (17:50)
[2024-01-04] MEDS: BENZOCAINE 20% AER SPR (*SP) 56 GM CAN 1 SPRAY TOPICAL (17:50)
[2024-01-04] MEDS: ACETAMINOPHEN 325 MG TABLET 650 MG PO (19:23)
[2024-01-04] MEDS: IBUPROFEN 600 MG TABLET PO (19:40)
--- NOTE | 2024-01-04 21:39 | OBPPTRN ---
Patient transferred to post room #286 via wheelchair. in crib next to mom and support person present. Oriented to unit, room, information board, rooming in, admission packet and security measures. Patient verbalizes understanding.
--- NOTE | 2024-01-04 22:45 | PM.OBPNVD ---
OB - PN: Subj Subjective Date/time seen: 01/04/24 0900 Cat 1 tracing, AROM clear, cervix 2.5/70/-2. Continue pitocin. OB - PN: Obj Data Labs 01/04/24 05:37 Labs: Laboratory Results - last 24 hr 01/04/24 01/04/24 05:37 06:16 WBC 15.0 H RBC 3.57 L Hgb 12.0 Hct 34.2 L MCV 95.8 MCH 33.6 MCHC 35.1 RDW 12.2 Plt Count 247 MPV 11.8 H Immature Gran % (Auto) 0.6 H Neut % (Auto) 73.8 H Lymph % (Auto) 19.3 [place] % (Auto) 5.8 Eos % (Auto) 0.2 Baso % (Auto) 0.3 Lymph # (Auto) 2.89 [place] # (Auto) 0.9 H Eos # (Auto) 0.0 Baso # (Auto) 0.0 Abs Immat Gran (auto) 0.09 H Absolute Neuts (auto) 11.1 H Absolute Nucleated RBC 0.000 Nucleated RBC % 0.0 Urine Opiates Screen Negative Urine Methadone Screen Negative Ur Barbiturates Screen Negative Ur Phencyclidine Scrn Negative Ur Amphetamine Screen Negative U Benzodiazepines Scrn Negative Urine Cocaine Screen Negative U Cannabinoids Screen Positive A RPR Non-reactive HIV 1&2 Ab/P24 Ag 4thGn Negative OB - PN A/P Time Spent With Patient Time: Total time spent is greater than 50% in coordination of care (as documented) at patient's floor/unit and/or counseling patient:
[2024-01-05 00:34] VITALS: BP 135/85; PULSE 65; RESP 18; TEMP 36.7; O2SAT 99
[2024-01-05 07:45] VITALS: BP 128/81; PULSE 67; RESP 16; TEMP 36.6; O2SAT 100
[2024-01-05] MEDS: IBUPROFEN 600 MG TABLET PO ×2 (07:49→14:47)
[2024-01-05] MEDS: ACETAMINOPHEN 325 MG TABLET 650 MG PO ×2 (07:50→20:51)
--- NOTE | 2024-01-05 07:59 | PM.OBDSVD ---
DS: Admitting Diagnosis Discharge Date 01/06/2024 Admitting Diagnosis DS: Discharge Diagnosis Discharge Diagnosis (1) , delivered: Code(s): O80 - Encounter for full-term uncomplicated delivery Status: Acute OB - DS: Summary OB Procedures : None OB Procedures Intrapartum: Spontaneous Vag Delivery OB Procedures: : None Peripartum Data Laceration Description: None Episiotomy description: None Time Spent with Patient Time attestation: Total time spent providing and/or coordinating discharge services: DS: Data Data Completed and Pending Pending studies at discharge: Pending at discharge 01/04/24 15:19 Surgical [PTH] Routine Discharge Plan Discharge Discharging Clinician: Jed Pradhan Patient Disposition: Home, Self-Care Activity: as tolerated Diet: as tolerated Patient Instructions: Antibiotic Form Stand Alone Forms: General Discharge Information Follow-up/Referrals: Jed Pradhan MD [Physician] - 3 Weeks Discharge Medications: New ibuprofen 600 mg Tablet 600 mg PO Q6H PRN (Reason: Cramping) Qty: 20 0RF Continued vit-iron fum-folic ac 65 mg iron- 1 mg tablet 1 tablet PO DAILY Qty: 90 3RF Discontinued fluconazole [Diflucan] 200 mg tablet 200 mg PO DAILY Qty: 1 0RF valacyclovir 500 mg tablet 1,000 mg PO DAILY Qty: 90 4RF Date of admission: 01/04/24 04:35 Primary Care Provider: KeyonnaOtto Admitting Provider: Jed Pradhan Attending physician on admission: Jed Pradhan Condition: Stable
[2024-01-05 08:58] LABS: Hematocrit 34.2 % (37.0-47.0); Hemoglobin 11.9 g/dL (12.0-15.0)
[2024-01-05 11:54] VITALS: BP 138/83; PULSE 67; RESP 16; TEMP 36.8; O2SAT 100
--- NOTE | 2024-01-05 12:41 | WPDANLDPN2 ---
Anes-Prog Note L&D Date/Time: 01/05/24 12:41 Comfortable throughout: labor and delivery Neuraxial method: epidural Epidural/Spinal procedure site: tender Neuro status: Neuro function grossly intact. Cardiovascular status: normal Respiratory status: normal Airway patency: baseline Mental status: baseline Post-Op hydration status: normal Vital Signs: Last Vital Signs Temp 36.8 C 01/05/24 11:54 Pulse 67 01/05/24 11:54 Resp 16 01/05/24 11:54 BP 138/83 01/05/24 11:54 Pulse Ox 100 01/05/24 11:54 O2 Del Method Room Air 01/04/24 20:00 Pain score (VAS): 7/10 I/O: Intake & Output 01/04/24 01/05/24 01/05/24 23:59 07:59 15:59 Intake Total 500 Balance 500 Post-procedural complaints: none Patient feedback: Patient satisfied with anesthetic care.
[2024-01-05] MEDS: RHO(D) IMMUNE GLOBULIN 300 MCG/2 ML SYRINGE IM (15:18)
[2024-01-05 20:46] VITALS: BP 129/80; PULSE 81; RESP 18; TEMP 36.9; O2SAT 99
[2024-01-06] MEDS: IBUPROFEN 600 MG TABLET PO ×2 (00:46→08:31)
[2024-01-06 08:31] VITALS: BP 130/85; PULSE 56; RESP 16; TEMP 36.8; O2SAT 100
== END 2024-01-06 10:51 | disposition home or self-care (01) | DRG 560 ==
LOC: ANHLDR 04:47 → ANHOB2 21:19
PROVIDERS: Admitting Provider Obstetrics & Gynecology; PCP Internal Medicine; Visit Provider Obstetrics & Gynecology
DX: O41.03X0 Oligohydramnios, third trimester, not applicable or unspecified (principal); Z37.0 Single live birth; Z3A.38 38 weeks gestation of pregnancy; O69.1XX0 Labor and delivery complicated by cord around neck, with compression, not applicable or unspecified
CPT/HCPCS: 36415; 80307; 85014; 85018; 85025; 85461; 86592; 86703; 86850; 86880; 86900; 86901; 86902; 88307; 90384; A9270; G0432; J2590; J2790; J2795; J7120

== ENCOUNTER 2024-06-09 10:58 | Outpatient (CLI) | payer OTHER, SELFPAY ==
--- OUTSIDE RECORDS SUMMARY | 2024-06-09 12:18 | XMS_ITS | Referral Summary ---
Author Organization [facility] Address [address] [place] [address] Care Team Providers Care Coil Cutter Name Role Phone Otto Newby MD Primary Care Provider [phone] Source Comments [facility],non-owned Affiliates and Associated Physician Practices is amultiple site organization consisting of ambulatory clinics and hospital sitesin [place], [place], [place] and [place]. This disclosure is being madepursuant to the Care Everywhere program and may not contain all information available regarding this patient. Last updated 18.[facility] [place] Encounters Date Type Department Care Team Description 03/25/2024 Travel 03/25/2024 2:40 PM DRAPERY EXAMINER Office Visit [facility] - Dermatology [address] [place] [phone] Patti Holliday MD Other cicatricial alopecia (Primary Dx); Other seborrheic dermatitis; Other alopecia areata; Hypertrophic scar of skin from Last 3 Months Allergies No known active allergies Medications * Be aware that medications may not be up to date on this document. Alwaysverify current medications with the patient. Medication Sig Dispensed Refills Start Date End Date Status Vit-Fe Fumarate-FA ( vitamin) 27-0.8 MG tablet Take 1 (one) tablet by mouth once daily for 30 days 05/20/2023 Active nystatin (Mycostatin) 182932 UNIT/GM cream APPLY CREAM TOPICALLY TO AFFECTED AREA TWICE DAILY Active clobetasol (Temovate) 0.05 % solutionIndications:O ther cicatricial alopecia Apply to affected areas of the scalp twice daily. 50 mL 3 03/25/2024 Active ketoconazole (Nizoral) 2 % shampooIndications:Ot her seborrheic dermatitis Apply to wet scalp, leave on for 3 minutes, then rinse; three times weekly. 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/08/2023 06/02/2023 06/08/2023 Social History Tobacco Use Types Packs/Day Years Used Date Smoking Tobacco: Never Tobacco Cessation:Counseling Given: Not Answered Alcohol Use Standard Drinks/Week Comments No 0 (1 standard drink = 0.6 oz pur e alcohol) Sex and Gender Information Value Date Recorded Sex Assigned at Not on file Gender Identity Not on file Sexual Orientation Not on file Last Filed Vital Signs Vital Sign Reading Time Taken Comments Blood Pressure 108/75 12/16/2023 10:32 AM CDT Pulse 72 12/16/2023 10:32 AM CDT Temperature 36.9 ??C (98.4 ??F) 04/01/2013 1:11 AM CS T Respiratory Rate 24 04/01/2013 1:11 AM DRAPERY EXAMINER Oxygen Saturation 99% 03/31/2013 10: 09 PM DRAPERY EXAMINER Room Air Inhaled Oxygen Concentration - - Weight 101.1 kg (222 lb 14.2 oz) 2012 10:09 PM DRAPERY EXAMINER Height - - Body Mass Index - - Plan of Treatment Upcoming Encounters Date Type Department Care Team (Late st Contact Info) Description 07/22/2024 1:20 PM CDT Office Visit [facility] - Dermatology [address] [place] [address] Kenneth Magallon MD [address] [facility] [place] [address] Procedures Procedure Name Priority Date/Time Associated Diagnosis Comments ME INTRALESIONAL INJECTION(S) 7 OR LESS Routine 03/25/2024 3:23 PM DRAPERY EXAMINER Hypertrophic scar of skin from Last 3 Months Results * ME INTRALESIONAL INJECTION(S) 7 OR LESS (03/25/2024 3:23 PM DRAPERY EXAMINER) Narrative Noel Rodriguez MD - 03/25/2024 3:23 PM DRAPERY EXAMINER Patti Holliday MD ? 03/25/2024 ??3:24 PM Side effects of intralesional steroid injection were reviewed with the patient, including petechiae and purpura, local lipoatrophy, striae and pigment change. Verbal consent obtained to proceed. ??Using a 30G/27G needle, a total of 0.2 cc of Kenalog 10 mg/cc was administered into lesion in the left forearm. Patient tolerated the procedure well without complications. Triamcinolone 10 mg/ml [facility] [phone] used. Patti Holliday MD PGY-3 Dermatology Resident Noel Rodriguez MD PROCEDURE/MINOR SURG ICAL ORDERABLES from Last 3 Months Care Teams Coil Cutter Relationship Specialty Start Date End Date Otto Newby MD [address] [place] [address] PCP - General 08/13/21
--- OUTSIDE RECORDS SUMMARY | 2024-06-09 12:18 | XMS_ITS | Patient Health Summary ---
Author Organization [facility] [place] Address [address] [place] [address] Care Team Providers Care Employment Trainer Name Role Phone Otto Newby MD Primary Care Provider [phone] Note from [facility],non-owned Affiliates and Associated Physician Practices is amultiple site organization consisting of ambulatory clinics and hospital sitesin [place], [place], [place] and [place]. This disclosure is being madepursuant to the Care Everywhere program and may not contain all information available regarding this patient. Last updated 18.[facility] Allergies No known active allergies Medications * Be aware that medications may not be up to date on this document. Alwaysverify current medications with the patient. * Vit-Fe Fumarate-FA ( vitamin) 27-0.8 MG tablet(Started 05/20/2023) Take 1 (one) tablet by mouth once daily for 30 days * nystatin (Mycostatin) 029184 UNIT/GM cream APPLY CREAM TOPICALLY TO AFFECTED AREA TWICE DAILY * clobetasol (Temovate) 0.05 % solution(Started 03/25/2024) Apply to affected areas of the scalp twice daily. 3 refills by 03/25/2025 * ketoconazole (Nizoral) 2 % shampoo(Started 03/25/2024) Apply to wet scalp, leave on for 3 minutes, then rinse; three times weekly. 30 days supply 3 refills by 03/25/2025 * minoxidil (Rogaine Extra Strength) 5 % foam(Started 03/25/2024) Apply to affected area once daily 3 refills by 03/25/2025 Active Problems Problem Noted Date Diagnosed Date [...] AM CS T Respiratory Rate 24 04/01/2013 1:1 1 AM MEAT SELECTOR Oxygen Saturation 99% 03/31/2013 10: 09 PM MEAT SELECTOR Room Air Inhaled Oxygen Concentration - - Weight 101.1 kg (222 lb 14.2 oz) 2012 10:09 PM MEAT SELECTOR Height - - Body Mass Index - - Procedures * UT INTRALESIONAL INJECTION(S) 7 OR LESS(Performed 03/25/2024) Performed for Hypertrophic scar of skin * UT INTRALESIONAL INJECTION(S) 7 OR LESS(Performed 01/01/2024) Performed for Other cicatricial alopecia, Other alopecia areata * SONOGRAM - COMPLETE(Performed 12/16/2023) Performed for Class 3 severe obesity due to excess calories without serious comorbidity with body mass index (BMI) of 40.0 to 44.9 in adult (FORMERLY [facility]), History of gestational diabetes mellitus (GDM) in prior , currently ([facility]), History of pre-eclampsia in prior , currently ([facility]), Fifth (FORMERLY [facility]), Encounter for ultrasound to assess growth (FORMERLY [facility]) * SONOGRAM - COMPLETE(Performed 11/21/2023) Performed for Class 3 severe obesity due to excess calories without serious comorbidity with body mass index (BMI) of 40.0 to 44.9 in adult (FORM[facility]), History of gestational diabetes mellitus (GDM) in prior , currently ([facility]), Encounter for follow-up ultrasound of anatomy ([facility]), Encounter for ultrasound to assess growth ([facility]) * UT INTRALESIONAL INJECTIONS 8 OR MORE(Performed 10/27/2023) Performed for Other cicatricial alopecia * SONOGRAM - COMPLETE(Performed 10/21/2023) Performed for Encounter for anatomic survey (HCC), Class 3 severe obesity due to excess calories without serious comorbidity with body mass index (BMI) of 40.0 to 44.9 in adult (HCC) * SONOGRAM - COMPLETE(Performed 09/22/2023) Performed for Encounter for anatomic survey (HCC), Class 3 severe obesity due to excess calories without serious comorbidity with body mass index (BMI) of 40.0 to 44.9 in adult (HCC) * SONOGRAM - COMPLETE(Performed 08/25/2023) Performed for Encounter for anatomic survey (HCC), Class 3 severe obesity due to excess calories without serious comorbidity with body mass index (BMI) of 40.0 to 44.9 in adult (HCC) * UT INTRALESIONAL INJECTION(S) 7 OR LESS(Performed 08/21/2023) Performed for Alopecia * UT PUNCH BX SKIN SINGLE LESION(Performed 06/05/2023) Performed for Other cicatricial alopecia * DERMATOPATHOLOGY(Performed 06/05/2023) Performed for Other cicatricial alopecia * BASIC METABOLIC PANEL (CALCIUM TOTAL)(Performed 04/01/2013) * DIFFERENTIAL MANUAL(Performed 04/01/2013) * CBC W AUTO DIFFERENTIAL(Performed 04/01/2013) * HCG URINE QUALITATIVE - POCT (IP) BEAKER(Performed 03/31/2013) * EKG 15-LEAD(Performed 03/31/2013) Performed for Chest pain * XR CHEST 2VW(Performed 03/31/2013) Performed for Chest pain Results * UT INTRALESIONAL INJECTION(S) 7 OR LESS (03/25/2024 3:23 PM MEAT SELECTOR) Narrative Noel Rodriguez MD - 03/25/2024 3:23 PM MEAT SELECTOR Patti Holliday MD ? 03/25/2024 ??3:24 PM [...] procedure well without complications. Triamcinolone 10 mg/ml [facility] [id number] used. Patti Holliday MD PGY-3 Dermatology Resident Noel Rodriguez MD PROCEDURE/MINOR SURG ICAL ORDERABLES * UT INTRALESIONAL INJECTION(S) 7 OR LESS (01/01/2024 2:22 PM CDT) Narrative Noel Rodriguez MD - 01/01/2024 2:22 PM CDT Kenneth Magallon MD ? 01/01/2024 ??2:23 PM The side effects of intralesional triamcinolone were discussed with patient, including petechiae and purpura, local lipoatrophy, striae and pigment change. 1.8mL of Triamcinolone 5mg/mL was injected in to 3 lesions with a 1 cc syringe and a 30 gauge needle. Wound care was reviewed verbally and provided in writing. Noel Rodriguez MD PROCEDURE/MINOR SURG ICAL ORDERABLES * SONOGRAM - COMPLETE (12/16/2023 8:47 AM CDT) Only the most recent of5 resultswithin the time period is included. Anatomical Region Laterality Modality Other 12/16/2023 8:47 AM CDT Narrative 12/16/2023 4:24 PM CDT ? [facility] ?PHONE: ??FAX: Pat. Name: ?NUBIA YEAGER. No: ?[id number] Study Date: ?? 12/16/2023 ??8:47am , Age: ? 1995, 28 Pregnancies: ?? 5, Para 3013 Height: ? 60 in Weight: ? 219 lb LMP: ?Unknown GA by Base: ?? 35w5d ?? PAULETTE: 01/15/2024 GA by US: ? 35w2d ?? PAULETTE: 01/18/2024 GA Selected: ??35w5d (From [facility]) PAULETTE: ?01/15/2024 Referring MD: Jed Pradhan MD Special Agent [employer]: ??Genet Peterson, RDMS, RDCS CPT4: ? [id number],[id number] BMI: ?42.77 Hist/Ind: ? Decreased movement ?Complete anatomy survey ?Prior preeclampsia & GDM in G1 ?FOB sickle cell trait ?Obesity class III MEASUREMENTS & AGE ? GROWTH EVALUATION Measurement ??GA ? Range ? Srce %for GA Ratios ----- ---- ------- BPD ??8.6 cm 34w5d (50u2l-74d2z) Hadl BPD 28% FL/BPD 0.81 (0.71 - 0.87) HC ??32.3 cm 36w4d (39p0k-82d1m) Hadl HC ??36% FL/AC ??0.23 (0.20 - 0.24) AC ??30.8 cm 34w5d (52u7v-27g5f) Hadl AC ??28% HC/AC ??1.05 (0.93 - 1.12) FL ?? 6.9 cm 35w4d (97f2a-02j1x) Hadl FL ??40% CI ? 0.75 (0.70 - 0.86) HL ?? 6.0 cm 34w4d (19r4r-31h1m) [place] HL ??31% GA for sonogram 35w2d (96x2o-80y6d) ?? Weight Estimate: based on (BPD,HC,AC,FL) [place] ?Weight: 2605 gm (2225-2986gm) Had ? : 5lbs, 11oz ? Normal: 2760 gm (2070- 3450gm) Had ? Wt% ? 33% for 35w5d Heart Rate: 140 bpm Amniotic Fluid Index: 15.6cm (07.7-24.9) Q1: 3.5cm ??Q2: 2.8cm ??Q3: 5.8cm ??Q4: 3.6cm ?? Biophysical Profile: 12/19 Breathin ?? Tone: 2 ?? NST: 2 Movement: ??2 ?? AFV: ??2 PROCEDURE, TECHNIQUE Technique: transabdominal EVAL, PLACENTA Presentation: cephalic Placenta: posterior Heart Rate: 140 bpm Amniotic Fluid Volume: normal CLINICAL SUMMARY A single fetus is seen in cephalic presentation. ??The measurements today are consistent with appropriate interval growth. ??The PAULETTE is based on a prior ultrasound. ??The amniotic fluid volume is within normal limits. ?? The FHR baseline was 135 bpm during today's reactive NST. ??The FHR variability was minimal to moderate . ?? IMPRESSION: Single, live, intrauterine at 35w5d ?? Amniotic fluid volume: within normal limits ?? Biophysical profile: Normal (12/19) with reactive NST, moderate BTBV & normal baseline,no breathing ?? size is within normal limits RECOMMEND: Continue weekly 8-point BPP testing Repeat growth assessment in 4 weeks ?? Thank you for allowing us the opportunity to care for your patient. ?? Reinier Herring MD <Electronic Signature> ??12/16/2023 10:22am Revised Jodi Geiger MD M ORDERABLES * UT INTRALESIONAL INJECTIONS 8 OR MORE (10/27/2023 12:34 PM CDT) Narrative Morgan Bartholomew MD - 10/27/2023 12:34 PM CDT Malik Andersen MD ? 10/27/2023 12:36 PM The side effects of intralesional triamcinolone were discussed with patient, including petechiae and purpura, local lipoatrophy, striae and pigment change. 2.0mL of Triamcinolone 5mg/mL with >20 injections total into alopecia patches on frontotemporal scalp and at anterior vertex of scalp with a 1 cc syringe and a 30 gauge needle. Malik Andersen MD [facility] Dermatology Resident Morgan Bartholomew MD PROCEDURE/MINOR SURG ICAL ORDERABLES * UT INTRALESIONAL INJECTION(S) 7 OR LESS (08/21/2023 9:09 PM CDT) Narrative Kimber Perez MD - 08/21/2023 9:09 PM CDT Kenneth Magallon MD ? 08/21/2023 ??9:10 PM The side effects of intralesional triamcinolone were discussed with patient, including petechiae and purpura, local lipoatrophy, striae and pigment change. 3mL of Triamcinolone 5mg/mL was injected in to 3 lesions with a 1 cc syringe and a 30 gauge needle. Wound care was reviewed verbally and provided in writing. Noel Rodriguez MD PROCEDURE/MINOR SURG ICAL ORDERABLES * UT PUNCH BX SKIN SINGLE LESION (06/05/2023 3:19 PM MEAT SELECTOR) Narrative Noel Rodriguez MD - 06/05/2023 3:19 PM MEAT SELECTOR Kenneth Magallon MD ? 06/05/2023 ??3:20 PM Risks, benefits and alternatives to punch biopsy were discussed with the patient. Verbal consent was obtained. Location: scalp Punch biopsy: 4 mm Skin prep: Alcohol Anesthesia: 1% lidocaine with epinephrine Closure: 4-0 nylon suture Dressing and wound care discussed. Specimen(s) placed in a patient labeled container and sent to [facility] Dermatopathology. Patient agrees to phone call for results and message if not available. Kenneth Magallon MD Dermatology Resident PGY-2 Noel Rodriguez MD PROCEDURE/MINOR SURG ICAL ORDERABLES * DERMATOPATHOLOGY (06/05/2023 3:33 AM MEAT SELECTOR) Case Report Dermatopathology Report ? Case: [id number] ? Authorizing Provider: ??Noel Rodriguez MD ? Collected: ? 06/05/2023 03:33 AM ? Ordering Location: ? [facility] - Dermatology ?Received: ?06/06/2023 06:34 AM ? Pathologist: ? Natasha Munoz MD ? Specimen: ?Skin, scalp ? 4 12:56 PM [facility] DERMATOPATHOLOGY LABORATORY Final Diagnosis Specimen A. 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 CCCA vs. LPP 4 12:56 PM [facility] DERMATOPATHOLOGY LABORATORY Gross Description Specimen A: Received is one formalin filled container labeled with the patient's name and designated scalp. The specimen consists of a punch biopsy measuring 4x4x4 mm. Jar 0. 4 12:56 PM [facility] DERMATOPATHOLOGY LABORATORY Microscopic Description Specimen A. SKIN, scalp: The specimen is submitted per alopecia protocol. Sections show a scarring alopecia. There is perifollicular lymphocytic inflammation, epithelial thinning, and concentric lamellar fibroplasia along the mid portion of the hair follicle. There is premature desquamation of the inner root sheath. There is focal parakeratosis and mild spongiosis of the epidermis. Original and deeper sections were reviewed. Verhoeff van Gieson stain reveals focal broad tree trunk-like perifollicular fibrosis. Grocott's methenamine silver (GMS) stain highlights focal fungal yeast forms consistent with Pityrosporum spp, as well as smaller more grouped cocci in clusters consistent with bacteria. COMMENT: These histologic features are compatible with the submitted clinical impression of central centrifugal scarring alopecia. There is also a superimposed eczematous dermatitis which could represent seborrheic dermatitis. Clinicopathologic correlation is recommended. 4 12:56 PM [facility] DERMATOPATHOLOGY LABORATORY Disclaimer An external and internal positive and negative controls are appropriate for the histochemical, immunohistochemical and immunofluorescence stain(s) in this case (if any), except where stated explicitly. The performance characteristics of the stain(s) cited in this report were developed and its performance characteristic determined by the Dermatopathology Laboratory at [facility], directed by Dr. Piyush Gutierrez. These tests need not be, and therefore are not, approved by the [place] Food and Drug Administration. The tests are used for clinical purposes. Billing Codes Specimen Charges Stain Charges 43149 1 59420 41093 1 1 4 12:56 PM [facility] DERMATOPATHOLOGY LABORATORY Embedded Images 4 12:56 PM [facility] DERMATOPATHOLOGY LABORATORY Pathology/Cytolo gy TISSUE SPECIMEN FROM SKIN / Unknown 06/05/2023 3:33 AM MEAT SELECTOR 06/06/2023 6:34 AM [facility] Noel Rodriguez MD LAB - PATHOLOGY/CYTO LOGY ORDERABLES DERMATOPATHOLOGY LABORATORY [facility] - Department of Dermatology [address], [address] [phone] * (ABNORMAL) BASIC METABOLIC PANEL (CALCIUM TOTAL) (04/01/2013 12:07 AM MEAT SELECTOR) Glucose 94 70 - 105 mg/dL 04/01/2013 12:35 AM [facility] Sodium 140 136 - 145 mmol/L 04/01/2013 12:35 AM [facility] Potassium 4.8 3.5 - 5.1 mmol/L 04/01/2013 12:35 AM [facility] Chloride 112(H) 98 - 107 mmol/L 04/01/2013 12:35 AM [facility] CO2 16(L) 20 - 28 mmol/L 04/01/2013 12:35 AM [facility] Calcium 10.19 9.08 - 10.48 mg/dL 04/01/2013 12:35 AM [facility] Anion Gap 12 5 - 20 mmol/L 04/01/2013 12:35 AM [facility] BUN 20.6(H) 5.3 - 18.7 mg/dL 04/01/2013 12:35 AM [facility] Creatinine 0.62 0.61 - 1.07 mg/dL 04/01/2013 12:35 AM [facility] eGFR by MDRD >60 mL/min/1. 73m2 04/01/2013 12:35 AM [facility] Comment:eGFR calculations ar e not performed for children under 18 years old. eGFR by MDRD >60 mL/min/1. 73m2 04/01/2013 12:35 AM [facility] Comment:eGFR calculations ar e not performed for children under 18 years old. Blood BLOOD SPECIMEN / Unknown Lab Venipuncture / Unknown 04/01/2013 12:07 AM [facility] 04/01/2013 12:16 AM [facility] Armando Kilgore MD LAB - CHEMISTRY JET [facility] Organization Address City/State/[facility] Co de Phone Number [facility] [address] [place] [address] * (ABNORMAL) DIFFERENTIAL MANUAL (04/01/2013 12:06 AM [facility]) WBC Auto 11.8 x10^9/L 04/01/2013 12:50 AM [facility] Neutrophil % Manual 56 31 - 78 % 04/01/2013 12:50 AM [facility] Lymphocytes % Manual 37 13 - 54 % 04/01/2013 12:50 AM [facility] Monocytes % Manual 7 4 - 13 % 04/01/2013 12:50 AM [facility] Cells Counted 100 # cells 04/01/2013 12:50 AM [facility] Platelet Estimation Adequate platelets Normal, Adequate platelets 04/01/2013 12:50 AM [facility] WBC Morph Normal 04/01/2013 12:50 AM [facility] Anisocytosis Occasional(A ) None 04/01/2013 12:50 AM [facility] Poikilocytosis Occasional(A ) None 04/01/2013 12:50 AM [facility] Blood BLOOD SPECIMEN / Unknown 04/01/2013 12:06 AM MEAT SELECTOR 04/01/2013 12:07 AM [facility] Armando Kilgore MD LAB - HEMATOLOGY ORD ERABLES Performing Organization Address City/State/[facility] Co de Phone Number [facility] [address] [place] [address] * (ABNORMAL) CBC W AUTO DIFFERENTIAL (04/01/2013 12:06 AM [facility]) WBC 11.8(H) 4.5 - 11.0 x10^9/L 04/01/2013 12:12 AM [facility] RBC 4.60 4.10 - 5.10 x10^12/L 04/01/2013 12:12 AM [facility] Hemoglobin 13.8 12.0 - 16.0 gm/dL 04/01/2013 12:12 AM [facility] Hematocrit 41.1 36.0 - 47.0 % 04/01/2013 12:12 AM [facility] MCV 89.3 78.0 - 98.0 fl 04/01/2013 12:12 AM [facility] MCH 30.0 25.0 - 35.0 pg 04/01/2013 12:12 AM [facility] MCHC 33.6 31.0 - 37.0 gm/dL 04/01/2013 12:12 AM [facility] Platelet Count 254 100 - 400 x10^9/L 04/01/2013 12:12 AM [facility] RDW-CV 12.9 11.5 - 14.0 % 04/01/2013 12:12 AM [facility] MPV 10.9(H) 6.0 - 9.5 fl 04/01/2013 12:12 AM [facility] Hematology Reflex Status Manual Diff to follow 04/01/2013 12:12 AM [facility] Blood BLOOD SPECIMEN / Unknown Lab Venipuncture / Unknown 04/01/2013 12:06 AM MEAT SELECTOR 04/01/2013 12:07 AM MEAT SELECTOR Armando Kilgore MD LAB - HEMATOLOGY ORD ERABLES [facility] [address] [place] [address] * HCG URINE QUALITATIVE - POCT (IP) BEAKER (03/31/2013 11:01 PM MEAT SELECTOR) Pathologist [facility] HCG Qual Urine Negative Negative [facility] POCT TEST[facility] QC Verified yes Yes - yes [facility] PO CT TESTING Urine specimen (specimen) URINE / Unknown 03/31/2013 11:01 PM MEAT SELECTOR Armando Kilgore MD LAB - POINT OF CARE ORDERABLES Performing Organization Address City/[facility] Co de Phone Number [facility] [address] [place] [address] * EKG 15-LEAD (03/31/2013 10:51 PM MEAT SELECTOR) Ventricular Rate 85 BPM CG MUSE Atrial Rate 85 BPM CG MUSE P-R Interval 136 ms CG MUSE QRS Duration ms 72 ms CG MUSE Q-T Interval ms 338 ms CG MUSE QTC Calculation (Bezet) 402 ms CG MUSE Calculated P [place] 50 degrees CG MUSE Calculated R [place] 32 degrees CG MUSE Calculated T [place] 15 degrees CG MUSE Interpretation EKG Normal sinus rhythm with sinus arrhythmia Normal ECG No previous ECGs available Confirmed by SAMANTHA ROSENBAUM ([id number]) on 04/01/2013 1:47:54 PM CG MUSE 03/31/2013 10:5 1 PM MEAT SELECTOR 04/01/2013 1:47 PM MEAT SELECTOR Narrative CG MUSE - 04/01/2013 1:47 PM MEAT SELECTOR Procedure Note Document, Scanned - 04/01/2013 7:44 AM CST Transcriptions Document, Scanned - 04/01/2013 1:49 PM CST Armando Kilgore MD ECG ORDERABLES CG [facility]USE * XR CHEST PA AND LATERAL(most commonly ordered) (03/31/2013 10:44 PM MEAT SELECTOR) Anatomical Region Laterality Modality Chest Radiographic Jess ging 04/01/2013 7:28 AM MEAT SELECTOR Impressions 04/01/2013 7:28 AM MEAT SELECTOR Normal chest. Narrative 04/01/2013 7:28 AM MEAT SELECTOR Chest PA, lateral The heart, mediastinum, lungs, pleura, and bony thorax are normal. Procedure Note Kalli Chaparro MD - 04/01/2013 Chest PA, lateral The heart, mediastinum, lungs, pleura, and bony thorax are normal. IMPRESSION Normal chest. Armando Kilgore MD DIAGNOSTIC IMAGING O RDERABLES Care Teams Employment Trainer Relationship Specialty Start Date End Date Otto Newby MD [address] [place] [phone] PCP - General 08/13/21
--- OUTSIDE RECORDS SUMMARY | 2024-06-09 12:18 | XMS_ITS | Clinical Summary ---
Author Organization [facility] Address [address] [place] [address] Care Team Providers Care Asset Management Analyst Name Role Phone Otto Newby MD Primary Care Provider [phone] Source Comments [facility],non-owned Affiliates and Associated Physician Practices is amultiple site organization consisting of ambulatory clinics and hospital sitesin [place], [place], [place]. This disclosure is being madepursuant to the Care Everywhere program and may not contain all information available regarding this patient. Last updated 18.[facility] Allergies No known active allergies Medications * Be aware that medications may not be up to date on this document. Alwaysverify current medications with the patient. Medication Sig Dispensed Refills Start Date End Date Status Vit-Fe Fumarate-FA ( vitamin) 27-0.8 MG tablet Take 1 (one) tablet by mouth once daily for 30 days 05/20/2023 Active nystatin (Mycostatin) 296868 UNIT/GM cream APPLY CREAM TOPICALLY TO AFFECTED [...] Date Other cicatricial alopecia 06/08/2023 06/02/2023 06/08/2023 Encounters Date Type Department Care Team Description 03/25/2024 2:40 PM FIELD CONTRACTOR Office Visit [facility] - Dermatology [address] [place] [address] Patti Holliday MD Other cicatricial alopecia (Primary Dx); Other seborrheic dermatitis; Other alopecia areata; Hypertrophic scar of skin 03/25/2024 Travel from Last 3 Months Social History Tobacco Use Types Packs/Day Years [...] T Respiratory Rate 24 04/01/2013 1:11 AM FIELD CONTRACTOR Oxygen Saturation 99% 03/31/2013 10: 09 PM FIELD CONTRACTOR Room Air Inhaled Oxygen Concentration - - Weight 101.1 kg (222 lb 14.2 oz) 2012 10:09 PM FIELD CONTRACTOR Height - - Body Mass Index - - Plan of Treatment Upcoming Encounters Date Type Department Care Team (Late st Contact Info) Description 07/22/2024 1:20 PM CDT Office Visit [facility] - Dermatology [address] [place] [address] Kenneth Magallon MD [address] [facility] [place] [address] Health Maintenance Due Date Last Done Comments PAP SMEAR 1995 HIV SCREENING 2011 HEPATITIS C SCREENING 03/16/2014 DTAP/TDAP/TD VACCINES (1 - Tdap) 2015 HEPATITIS B VACCINE (1 of 3 - 19+ 3-dose series) 2015 COVID-19 VACCINE ( 2023-2 5 season) 2024 INFLUENZA VACCINE (#1) 2024 04/28/2018 DEPRESSION SCREENING 05/12/2024 ZOSTER VACCINE (1 of 2) 2046 HIB VACCINE Aged Out No longer eligi ble based on patient's age to complete this topic HPV VACCINE Aged Out No longer eligi ble based on patient's age to complete this topic MENINGOCOCCAL (Group B) VACCINE Aged Out No longer eligible based on patient's age to complete this topic MENINGOCOCCAL VACCINE Aged Out No mickie davide eligible based on patient's age to complete this topic PNEUMOCOCCAL VACCINE Aged Out No long er eligible based on patient's age to complete this topic Procedures Procedure Name Priority Date/Time Associated Diagnosis Comments [place] INTRALESIONAL INJECTION(S) 7 OR LESS Routine 03/25/2024 3:23 PM FIELD CONTRACTOR Hypertrophic scar of skin from Last 3 Months Results * [place] INTRALESIONAL INJECTION(S) 7 OR LESS (03/25/2024 3:23 PM FIELD CONTRACTOR) Narrative Noel Rodriguez MD - 03/25/2024 3:23 PM FIELD CONTRACTOR Patti Holliday MD ? 03/25/2024 ??3:24 PM [...] well without complications. Triamcinolone 10 mg/ml [facility] [phone] used. Patti Holliday MD PGY-3 Dermatology Resident Noel Rodriguez MD PROCEDURE/MINOR SURG ICAL ORDERABLES from Last 3 Months Care Teams Asset Management Analyst Relationship Specialty Start Date End Date Otto Newby MD [address] [place] [phone] PCP - General 08/13/21
[2024-06-09 12:34] LABS: Hepatitis B Surface Antigen Negative (Negative)
[2024-06-09 12:40] LABS: HAV RESULT Negative (Negative); Hepatitis B Core IgM Result Negative (Negative)
[2024-06-09 12:51] LABS: Hepatitis C Virus Antibody Negative (Negative)
[2024-06-09 13:16] LABS: HIV 1/2 Ab P24 Ag Result Negative (Negative)
[2024-06-10 11:14] LABS: Rapid Plasma Reagin Non-Reactive (NonReactive)
== END 2024-06-09 10:59 | disposition home or self-care (01) ==
LOC: ANHLAB 11:03
PROVIDERS: PCP Physician Assistant; Visit Provider Obstetrics & Gynecology
DX: Z11.3 Encounter for screening for infections with a predominantly sexual mode of transmission (principal)
CPT/HCPCS: 36415; 80074; 86592; 86695; 86696; 86703; G0432

== ENCOUNTER 2024-11-27 21:54 | Emergency (ER) | payer OTHER, SELFPAY ==
[2024-11-27 22:17] VITALS: BP 124/78; PULSE 81; RESP 18; TEMP 36.3; O2SAT 100
--- NOTE | 2024-11-28 00:10 | ED.SKABFB ---
HPI - Skin/Abscess/Foreign Bdy General Chief complaint: Skin/Abscess/Foreign Body Stated complaint: maybe spider bite Time Seen by Provider: 11/27/24 22:40 History of Present Illness HPI narrative: 29-year-old otherwise healthy female presenting for evaluation of a spider bite to her right anterior leg that just occurred earlier this evening. Endorses some pain and swelling to the area as well as some redness that has since mildly improved. Endorses some tingling around the area the spider bite. Patient states that could have been a spider from a brown recluse or black will family but she is not sure. No systemic symptoms, no significant pain, no significant swelling. Ambulatory in triage. Related Data Allergies Allergy/AdvReac Type Severity Reaction Status Date / Time No Known Allergies Allergy Verified 11/27/24 22:58 Review of Systems Review of Systems: As reviewed above in HPI PMFSH Past Medical History Medical History HSV-1 infection Encounter for screening examination for sexually transmitted disease Vaginal discharge Gonorrhea Hypertension affecting HSV-2 infection Patient denies significant medical history Surgical History Surgical History History of gynecological procedure (10/13/13) nexplanon insertion History of gynecological procedure (09/30/16) nexplanon removal History of gynecological procedure (03/07/17) Suction D&C missed AB ; POC trophoblastic villi present Hx of cholecystectomy (11/03/18) Family History Family History Grandparent Diabetes mellitus maternal grandmother Hypertension maternal grandmother Other Cerebrovascular accident maternal Uncle Social History Social History Smoking status: Never smoker Second hand tobacco smoke exposure: No Alcohol intake: never Substance use: never Substance use type: does not use Do You Feel Safe in your Home?: Yes Lack of Transportation: YES Lack of Food: Never True Current Housing: I Have Housing Concerned About Future Housing: No Difficulty Paying Gas/Electric Bills: No Difficulty Paying for Meds: No Currently Unemployed: YES Education: Trade/Vocational Certificate Difficulty w/ Childcare or Family Care: No Living arrangements: other Additional living arrangements comments: single Occupation/Education: unemployed Gender identity (if verbalized by the patient): Female Sexual Orientation (if Verbalized by the Patient): Straight or Heterosexual Spiritual care concerns: No Exam Narrative: GENERAL: [Well-appearing, well-nourished, and in no acute distress.] HEAD: [Normocephalic, atraumatic.] EYES: [PERRLA and EOMI.] ENT: Nares clear, no rhinorrhea or epistaxis. Mucous membranes moist. NECK: Supple. CHEST: [Clear to auscultation. No respiratory distress.] HEART: [Regular rate and rhythm]. No murmur heard. [Normal peripheral pulses.] ABDOMEN: [Soft, nondistended], [nontender], [No rigidity or guarding] EXTREMITIES: Some mild swelling pain over the anterior lateral right kearney with mild erythema. No palpable abscess formation, no crepitus, no streaking redness. SKIN: Warm, dry, no rash. NEURO: [No focal deficits]. Alert and oriented [x3.] PSYCH: [Normal mood and affect.] Course Vital Signs Vital signs: Vital Signs Temperature 36.3 C L 11/27/24 22:17 Pulse Rate 81 11/27/24 22:17 Respiratory Rate 18 11/27/24 22:17 Blood Pressure 124/78 11/27/24 22:17 Pulse Oximetry 100 11/27/24 22:17 Temperature 36.3 C L 11/27/24 22:17 Pulse Rate 81 11/27/24 22:17 Respiratory Rate 18 11/27/24 22:17 Blood Pressure 124/78 11/27/24 22:17 Pulse Oximetry 100 11/27/24 22:17 MDM - Skin/Abscess/Foreign Bdy MDM Narrative Medical decision making narrative: 29-year-old otherwise healthy female presenting for evaluation of a spider bite to her right anterior leg that just occurred earlier this evening. Endorses some pain and swelling to the area as well as some redness that has since mildly improved. Endorses some tingling around the area the spider bite. Patient states that could have been a spider from a brown recluse or black will family but she is not sure. No systemic symptoms, no significant pain, no significant swelling. Ambulatory in triage. Exam is reassuring, no systemic features, patient given a dose of Keflex here and her tetanus is already up today. She was given signs and symptoms to watch out for on her discharge instructions and safe for discharge home with prescription for Keflex. Medical Records Attestation: I reviewed the patient's medical records. Discharge Plan Discharge Clinical Impression: Spider bite Patient Disposition: Home Condition: Stable Instructions: Antibiotic Form, Insect Bite or Sting (ED) Additional Instructions: We will send you home with a short course of antibiotics for your spider bite. Return with any emergent concerns otherwise follow-up with regular doctor. You can apply local bacitracin or Neosporin to the area as well. Tylenol and ibuprofen for swelling and pain. Patient Language: Surinamese Prescriptions: New cephalexin 500 mg capsule 500 mg PO Q12H 5 Days Qty: 10 0RF No Action drospirenone-ethinyl estradiol [DEJA (28)] 3-0.02 mg tablet 1 tablet PO DAILY Qty: 84 3RF metronidazole [Vandazole] 0.75 % (37.5mg/5 gram) gel 1 appful vaginal DAILY 5 Days Qty: 70 3RF Follow-up/Referrals: Donavan,GREG Huerta [Primary Care Provider] - Time of Disposition: 00:10
[2024-11-28] MEDS: CEPHALEXIN 500 MG CAPSULE PO (00:16)
[2024-11-28 00:21] VITALS: BP 129/82; PULSE 63; RESP 16; TEMP 36.6; O2SAT 100
== END 2024-11-28 00:23 | disposition home or self-care (01) ==
PROVIDERS: Emergency Provider Student in an Organized Health Care Education/Training Program; PCP Physician Assistant
DX: T63.301A Toxic effect of unspecified spider venom, accidental (unintentional), initial encounter (principal); Z90.49 Acquired absence of other specified parts of digestive tract
CPT/HCPCS: 99283; A9270

== ENCOUNTER 2025-03-02 11:15 | Outpatient (CLI) | payer OTHER, SELFPAY ==
[2025-03-02 11:35] LABS: Hematocrit 43.2 % (37.0-47.0); Hemoglobin 14.2 g/dL (12.0-15.0); Immature Granulocyte Percent A 0.4 % (0-0.5); Lymphocytes Absolute Auto 2.63 K/mm3 (0.9-3.2); Mean Corpuscular HGB Conc 32.9 g/dl (32-36); Mean Corpuscular Hemoglobin 31.6 pg (26-34); Mean Corpuscular Volume 96.2 fl (80-100); Nucleated Red Blood Cells Absolute Auto 0.000 K/mm3 (0.0-0.012); Nucleated Red Blood Cells Perc 0.0 % (0.0-0.2); Platelet Count Result 340 k/mm3 (150-375); Red Blood Count 4.49 M/mm3 (4.2-5.4); White Blood Count 11.9 K/mm3 (4.5-10.0)
[2025-03-02 11:43] LABS: Add Urine Microscopic? YES; Appearance Urine Clear (Clear); Glucose Urine UA Negative (Negative); Leukocyte Esterase Ur Negative LEU/UL (Negative); Nitrate Urine Negative (Negative); Non Pathogenic Casts 0-2; Specific Grav Ur 1.025 (1.001-1.035)
[2025-03-02 11:46] LABS: Hemoglobin A1C 4.6 % (<5.7)
[2025-03-02 12:00] LABS: Cholesterol 194 mg/dL (0-200); HDL Direct 61 mg/dL; Iron 78 ug/dL (37-170); Triglycerides 80 mg/dL (<150)
[2025-03-02 12:21] LABS: Free T4 Free Thyroxine 1.12 ng/dL (0.78-2.19)
[2025-03-02 12:22] LABS: Percent Iron Saturation 23 % (20-50)
[2025-03-02 12:39] LABS: Thyroid Stimulating Hormone 0.943 uIU/mL (0.465-4.680)
[2025-03-02 12:46] LABS: Ferritin 44.20 ng/mL (6.24-137)
[2025-03-02 13:00] LABS: Vitamin B12 297.0 pg/mL (239-931)
--- OUTSIDE RECORDS SUMMARY | 2025-03-02 13:34 | XMS_ITS | Clinical Summary ---
Author Organization [facility] Address [address] [place] [address] Care Team Providers Care Manager Consumer Name Role Phone Otto Newby MD Primary Care Provider [phone] Source Comments [facility],non-owned Affiliates and Associated Physician Practices is amultiple site organization consisting of ambulatory clinics and hospital sitesin [place], [place], [place] and [place]. This disclosure is being madepursuant to the Care Everywhere program and may not contain all information available regarding this patient. Last updated 18.[facility] Allergies No known active allergies Medications * Be aware that medications may not be up to date on this document. Alwaysverify current medications with the patient. nystatin (Mycostatin) 916890 UNIT/GM cream APPLY CREAM TOPICALLY TO AFFECTED AREA TWICE DAILY Active clobetasol (Temovate) 0.05 % solutionIndicati ons:Other cicatricial alopecia Apply to affected areas of the scalp twice daily. 50 mL 3 4 Active ketoconazole (Nizoral) 2 % shampooIndicatio ns:Other seborrheic dermatitis Apply to wet scalp, leave on for 3 minutes, then rinse; three times weekly. 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 06/02/2023 06/08/2023 Social History Tobacco Use Types Packs/Day Years Used Date Smoking Tobacco: Never Tobacco Cessation:Counseling Given: Not Answered Alcohol Use Standard Drinks/Week Comments No 0 (1 standard drink = 0.6 oz pur e alcohol) Comments No Sex and Gender Information Value Date Recorded Sex Assigned at Not on file Legal Sex Female 9:55 PM INBOUND CALL CENTER AGENT Gender Identity Not on file Sexual Orientation Not on file Last Filed Vital Signs Vital Sign Reading Time Taken Comments Blood Pressure 108/75 12/16/2023 10:32 AM CDT Pulse 72 12/16/2023 10:32 AM CDT Temperature 36.9 C (98.4 F) 04/01/2013 1:11 AM INBOUND CALL CENTER AGENT Respiratory Rate 24 04/01/2013 1:11 AM INBOUND CALL CENTER AGENT Oxygen Saturation 99% 03/31/2013 10: 09 PM INBOUND CALL CENTER AGENT Room Air Inhaled Oxygen Concentration - - Weight 101.1 kg (222 lb 14.2 oz) 2012 10:09 PM INBOUND CALL CENTER AGENT Height - - Body Mass Index - - Plan of Treatment Health Maintenance Due Date Last Done Comments HIV SCREENING 2011 HEPATITIS C SCREENING 03/16/2014 DTAP/TDAP/TD VACCINES (1 - Tdap) 2015 HEPATITIS B VACCINE (1 of 3 - 19+ 3-dose series) 2015 PAP SMEAR 2017 HPV VACCINE (1 - 3-dose SCDM series) 2023 DEPRESSION SCREENING 05/12/2024 COVID-19 VACCINE (1 - 2023-2 5 season) 2025 INFLUENZA VACCINE (#1) 2025 04/28/2018 ZOSTER VACCINE (1 of 2) 2046 HIB VACCINE Aged Out No longer eligi ble based on patient's age to complete this topic MENINGOCOCCAL (Group B) VACC INE SHARED DECISION-MAKING Aged Out No longer eligibl e based on patient's age to complete this topic MENINGOCOCCAL GROUPS A/C/Y/W VACCINE Aged Out No longer eligible b ased on patient's age to complete this topic PNEUMOCOCCAL VACCINE Aged Out No long er eligible based on patient's age to complete this topic Insurance [facility] SELF PAY NO INSURANCE Member Subscriber Plan / Payer (Ef fective for All Dates) Name:Nubia Yeager Member ID:Not on file Relation to Subscriber:Not on file Name:NUBIA YEAGER Subscriber ID:Not on file (Home) Address: [address] [place] [phone] Payer ID:Not on file Group ID:Not on file Type:Self Pay Address: [place], [place] [facility] * Guarantor: SYSTEM GENERATED Account Type Relation to Patient Date of Phone Billing Address Personal/Family [address] [place] [address] Care Teams Manager Consumer Relationship Specialty Start Date End Date Otto Newby MD [address] [place] [address] PCP - General 08/13/21
--- OUTSIDE RECORDS SUMMARY | 2025-03-02 14:28 | XMS_ITS | Clinical Summary ---
Author Organization [facility] Address [address] [place] [address] Care Team Providers Care Steam Fitter Supervisor Name Role Phone Otto Newby MD Primary Care Provider [phone] Source Comments [facility],non-owned Affiliates and Associated Physician Practices is amultiple site organization consisting of ambulatory clinics and hospital sitesin [place], [place], [place] and [place]. This disclosure is being madepursuant to the Care Everywhere program and may not contain all information available regarding this patient. Last updated 18.[facility] Allergies No known active allergies Medications * Be aware that medications may not be up to date on this document. Alwaysverify current medications with the patient. nystatin (Mycostatin) 410446 UNIT/GM cream APPLY CREAM TOPICALLY TO AFFECTED [...] on file Legal Sex Female 9:55 PM LIFT ELECTRICIAN Gender Identity Not on file Sexual Orientation Not on file Last Filed Vital Signs Vital Sign Reading Time Taken Comments Blood Pressure 108/75 12/16/2023 10:32 AM CDT Pulse 72 12/16/2023 10:32 AM CDT Temperature 36.9 C (98.4 F) 04/01/2013 1:11 AM LIFT ELECTRICIAN Respiratory Rate 24 04/01/2013 1:11 AM LIFT ELECTRICIAN Oxygen Saturation 99% 03/31/2013 10: 09 PM LIFT ELECTRICIAN Room Air Inhaled Oxygen Concentration - - Weight 101.1 kg (222 lb 14.2 oz) 2012 10:09 PM LIFT ELECTRICIAN Height - - Body Mass Index - [...] patient's age to complete this topic Insurance [facility] SELF PAY NO INSURANCE Member Subscriber Plan / Payer (Ef fective for All Dates) Name:Nubia Yeager Member ID:Not on file Relation to Subscriber:Not on file Name:NUBIA YEAGER Subscriber ID:Not on file (Home) Address: [address] [place] [phone] Payer ID:Not on file Group ID:Not on file Type:Self Pay Address: [place], [place] [facility] * Guarantor: SYSTEM GENERATED Account Type Relation to Patient Date of Phone Billing Address Personal/Family [address] [place] [address] Care Teams Steam Fitter Supervisor Relationship Specialty Start Date End Date Otto Newby MD [address] [place] [address] PCP - General 08/13/21
[2025-03-02 18:18] LABS: HIV 1/2 Ab P24 Ag Result Negative (Negative)
[2025-03-02 22:06] LABS: Syphilis IgG/IgM Antibody Non-Reactive (Nonreactive)
[2025-03-02 22:09] LABS: Hepatitis B Surface Antigen Negative (Negative)
== END 2025-03-02 11:16 | disposition home or self-care (01) ==
PROVIDERS: PCP Physician Assistant; Referring Provider Obstetrics & Gynecology
DX: Z00.00 Encounter for general adult medical examination without abnormal findings (principal); Z11.3 Encounter for screening for infections with a predominantly sexual mode of transmission
CPT/HCPCS: 36415; 80061; 81001; 82306; 82607; 82728; 82746; 83036; 83540; 83550; 84439; 84443; 85025; 86593; 86703; 87340; G0432

== ENCOUNTER 2025-05-08 15:10 | Emergency (ER) | payer OTHER, SELFPAY ==
--- NOTE | ~2025-05-08 | US_ITS ---
EXAMINATION: Ultrasound uterus OB, Limited: DATE: 04/30/2025. INDICATION: 9 weeks . Vaginal bleeding starting today. TECHNIQUE: Limited ultrasound examination of pelvis with Doppler including transvaginal examination. COMPARISON: None available of this . FINDINGS: Intrauterine gestation with single live fetus with crown-rump length of 2.8 cm corresponding to 9 weeks and 5 days of gestational age. heart rate at 178 beats per minute. Focal subchorionic bleed is noted 5 x 3 x 5 cm in size in the inferior aspect of the gestational sac. No adnexal mass or fluid collections are seen in the pelvis. IMPRESSION: 1. Single live fetus 9 weeks and 5 days in size by ultrasound. heart rate at 178 bpm. 2. Focal subchorionic bleed is noted in the inferior aspect of the sac as mentioned above. Close clinical and ultrasound follow-up are recommended. 3. No adnexal mass or fluid collections are seen. Reviewed, dictated and finalized at location T. R AND SEWER SYSTEMS SUPERVISOR IMPRESSION: 1. Single live fetus 9 weeks and 5 days in size by ultrasound. heart rate at 178 bpm. 2. Focal subchorionic bleed is noted in the inferior aspect of the sac as menti oned above. Close clinical and ultrasound follow-up are recommended. 3. No adnexal mass or fluid collections are seen.
[2025-05-08 15:15] VITALS: BP 126/82; PULSE 83; RESP 16; TEMP 36.6; O2SAT 100
--- NOTE | 2025-05-08 16:25 | ED.PREGNANCY ---
HPI - General Chief complaint: Vaginal Bleeding Stated complaint: miscarriage, 2 months, bleeding started 30 minutes Time Seen by Provider: 05/08/25 15:45 History of Present Illness HPI Narrative: Patient is a 30-year-old female who presents to the ER with vaginal bleeding, abdominal cramps, and back pain that started earlier today. She reports her last menstrual period was March 06, 2025. Patient is a . Around 2:45 p.m. today she ?felt a gush and noticed vaginal bleeding. Patient reports she sat on the toilet but did not pass any clots. She reports she feels like she needs to have a bowel movement. Patient is concerned she may be dehydrated. She endorses emesis throughout her so far and continues to the experience nausea vomiting. Patient denies any recent fevers, urinary symptoms, or purulent vaginal discharge. Related Data Allergies Allergy/AdvReac Type Severity Reaction Status Date / Time No Known Allergies Allergy Verified 01/24/25 11:04 Review of Systems Review of Systems: All systems reviewed & are unremarkable except as noted in HPI and below PMFSH Past Medical History Medical History HSV-1 infection Encounter for screening examination for sexually transmitted disease Vaginal discharge Gonorrhea Hypertension affecting HSV-2 infection Patient denies significant medical history Surgical History Surgical History History of gynecological procedure (10/13/13) nexplanon insertion History of gynecological procedure (09/30/16) nexplanon removal History of gynecological procedure (03/07/17) Suction D&C missed AB ; POC trophoblastic villi present Hx of cholecystectomy (11/03/18) Family History Family History Grandparent Diabetes mellitus maternal grandmother Hypertension maternal grandmother Other Cerebrovascular accident maternal Uncle Social History Social History Smoking status: Never smoker Second hand tobacco smoke exposure: No Alcohol intake: never Substance use: never Substance use type: does not use Lack of Transportation: YES Lack of Food: Never True Current Housing: I Have Housing Concerned About Future Housing: No Difficulty Paying Gas/Electric Bills: No Difficulty Paying for Meds: No Currently Unemployed: YES Education: Trade/Vocational Certificate Difficulty w/ Childcare or Family Care: No Living arrangements: other Additional living arrangements comments: single Occupation/Education: unemployed Gender identity (if verbalized by the patient): Female Sexual Orientation (if Verbalized by the Patient): Straight or Heterosexual Spiritual care concerns: No Exam Narrative: GENERAL: Well appearing, obese, non-toxic, in no acute distress. HEAD: Normocephalic, atraumatic. NECK: Supple. No adenopathy, no masses. RESPIRATORY: Airway patent, respirations nonlabored. Clear to auscultation bilaterally, no rales, rhonchi, wheezing. CARDIOVASCULAR: Regular rate and rhythm without murmurs, rubs, or gallops. Peripheral pulses 2+ and equal bilaterally. ABDOMINAL: Soft, lower abdominal tenderness bilaterally, nondistended. Normoactive BS. MUSCULOSKELETAL: Moves all extremities. Strength/ROM intact without gross deformities. SKIN: Warm, dry, normal color. No rashes. NEURO: A&O X3. Speech clear. Cranial nerves II-XII intact. No ataxic movements. PSYCHIATRIC: Appropriate mood and affect. Normal interaction. Discharge Plan Discharge Clinical Impression: Subchorionic hemorrhage of placenta in first trimester, Vaginal bleeding, Threatened , Elevated WBC count Patient Disposition: Home Condition: Stable Instructions: Antibiotic Form, Subchorionic Hemorrhage (ED) Additional Instructions: Please return to the ER with any worsening symptoms, including increased pain, increased vaginal bleeding, fevers, passage of large clots. Follow-up with OBGYN as soon as possible for further evaluation. Take all medications as prescribed, including regularly scheduled medications. You may take Zofran as needed for nausea. Please take Tylenol as needed for pain control. Patient Language: Vietnamese Prescriptions: New ondansetron 4 mg tablet,disintegrating 4 mg PO Q8H Qty: 30 0RF No Action drospirenone-ethinyl estradiol [DEJA (28)] 3-0.02 mg tablet 1 tablet PO DAILY Qty: 84 3RF Follow-up/Referrals: Donavan,GREG Huerta [Primary Care Provider, Family Practice] Jed Pradhan MD [Physician, RESIDENTIAL YOUTH COUNSELOR] Time of Disposition: 19:51 Course Vital Signs Vital signs: Vital Signs Temperature 36.6 C 05/08/25 15:15 Pulse Rate 83 05/08/25 15:15 Respiratory Rate 16 05/08/25 15:15 Blood Pressure 126/82 05/08/25 15:15 Pulse Oximetry 100 05/08/25 15:15 Oxygen Delivery Room Air 05/08/25 15:15 Temperature 36.6 C 05/08/25 15:15 Pulse Rate 83 05/08/25 15:15 Respiratory Rate 16 05/08/25 15:15 Blood Pressure 126/82 05/08/25 15:15 Pulse Oximetry 100 05/08/25 15:15 Oxygen Delivery Room Air 05/08/25 15:15 MDM MDM Narrative Medical decision making narrative: Patient is a 30-year-old female who presents to the ER with vaginal bleeding, abdominal cramps, and back pain that started earlier today. She reports her last menstrual period was March 06, 2025. Patient is a . Around 2:45 p.m. today she ?felt a gush and noticed vaginal bleeding. Patient reports she sat on the toilet but did not pass any clots. She reports she feels like she needs to have a bowel movement. Patient is concerned she may be dehydrated. She endorses emesis throughout her so far and continues to the experience nausea vomiting. Patient denies any recent fevers, urinary symptoms, or purulent vaginal discharge. Labs Ordered: CBC, BMP, beta hCG, GC chlamydia, Trichomonas, UA Imaging Ordered: Pelvic ultrasound Medications Ordered: 1 L normal saline IV bolus, Zofran IV, Tylenol 1 g Results: Pt's US indicates Intrauterine gestation with single live fetus with crown-rump length of 2.8 cm corresponding to 9 weeks and 5 days of gestational age. heart rate at 178 beats per minute. Focal subchorionic bleed is noted 5 x 3 x 5 cm in size in the inferior aspect of the gestational sac. No adnexal mass or fluid collections are seen in the pelvis. Single live fetus 9 weeks and 5 days in size by ultrasound. heart rate at 178 bpm. 2. Focal subchorionic bleed is noted in the inferior aspect of the sac as mentioned above. Close clinical and ultrasound follow-up are recommended. 3. No adnexal mass or fluid collections are seen. Diagnosis: Subchorionic hemorrhage, vaginal bleeding, threatened miscarriage Consults: OBGYN, outpatient, Dr. Pradhan Patient Education/Shared MDM: *Pt reports her four children have all had a viral upper respiratory infection lately and she reports she has had some symptoms too. This may indicate why pt's WBC is slightly elevated. She reports her children were tested for COVID, flu and RSV, all of which were negative. Results of lab work and imaging shared with patient. Her Rh immunoglobulin indicates patient should receive a dose of RhoGAM. Patient reports she has had this administration with each of her previous pregnancies. She endorses mild improvement of symptoms following Tylenol medication administration. Patient strongly advised to maintain hydration status upon discharge and follow-up with her OBGYN as soon as possible. She will be discharged home with a prescription for Zofran. Patient was advised to take Tylenol as needed for pain control. Strict return precautions provided. Patient verbalized understanding and is in agreement with plan. Vital signs stable at time of discharge. All questions answered. Differential Diagnosis Differential Diagnosis: Threatened miscarriage, vaginal bleeding, subchorionic hemorrhage, urinary tract infection Lab Data [facility] Lab Attestation statement: I personally reviewed the patient's lab results. 05/08/25 17:13 05/08/25 17:13 Labs: Lab Results 05/08/25 05/08/25 05/08/25 Range/Units 17:13 17:18 17:27 WBC 14.6 H (4.5-10.0) K/mm3 RBC 3.99 L (4.2-5.4) M/mm3 Hgb 12.9 (12.0-15.0) g/dL Hct 37.2 (37.0-47.0) % MCV 93.2 (80-100) fl MCH 32.3 (26-34) pg MCHC 34.7 (32-36) g/dl RDW 12.0 (11.5-14.5) % Plt Count 303 (150-375) k/mm3 MPV 10.0 (7.4-10.4) fl Immature Gran % (Auto) 0.3 (0-0.5) % Neut % (Auto) 81.1 H (45.5-73.1) % Lymph % (Auto) 12.4 L (18.3-44.2) % [place] % (Auto) 5.7 (2.6-8.5) % Eos % (Auto) 0.3 (0-4.4) % Baso % (Auto) 0.2 (0.2-1.2) % Lymph # (Auto) 1.80 (0.9-3.2) K/mm3 [place] # (Auto) 0.8 H (0.1-0.6) K/mm3 Eos # (Auto) 0.0 (0-0.3) K/mm3 Baso # (Auto) 0.0 (0.0-0.1) K/mm3 Abs Immat Gran (auto) 0.05 H (0.00-0.031) K/mm3 Absolute Neuts (auto) 11.8 H (1.3-6.7) K/mm3 Absolute Nucleated RBC 0.000 (0.0-0.012) K/mm3 Nucleated RBC % 0.0 (0.0-0.2) % PT 14.3 (11.1-14.7) Seconds INR 1.1 APTT 29.9 (22.3-36.8) Seconds Sodium 137 (137-145) mmol/L Potassium 3.7 (3.4-5.0) mmol/L Chloride 107 (98-107) mmol/L Carbon Dioxide 24 (22-30) mmol/L Anion Gap 6 (4-12) mmol/L BUN 7 (7-17) mg/dL Creatinine 0.62 L (0.7-1.0) mg/dL Estim Creat Clear Calc 117 ml/min Estimated GFR > 60 (59 - ) Glucose 92 (65-110) mg/dL Calcium 9.3 (8.4-10.2) mg/dL Total Bilirubin 0.8 (0.2-1.3) mg/dL AST 26 (14-36) U/L ALT 16 (6-35) U/L Alkaline Phosphatase 68 (38-126) U/L Total Protein 7.7 (6.3-8.2) g/dL Albumin 4.2 (3.5-5.1) g/dL Beta HCG, Quant 57486.00 mIU/ML Urine Color Yellow (Yellow) Urine Appearance Clear (Clear) Urine pH 7.0 (5.0-9.0) Ur Specific [place] 1.024 (1.001-1.035) Urine Protein Trace (Negative) mg/dL Urine Glucose (UA) Negative (Negative) mg/dL Urine Ketones Trace H (Negative) mg/dL Ur Blood (Man) 1+ H (Negative) Urine Nitrate Negative (Negative) Urine Bilirubin Negative (Negative) Urine Urobilinogen 1.0 (<2.0) mg/dL Leukocyte Esterase Rfl Negative (Negative) ELIZABETH/UL Urine RBC 6-10 H (0-2) /hpf Urine WBC 0-5 (0-3) /hpf Ur Squamous Epith Cells None seen (Few) /hpf Urine Bacteria None seen /hpf Urine Casts 0-2 POC Urine HCG, Qual Negative Positive (Negative) C. trachomatis (PCR) Not detected (NOT DETECTE) N. gonorrhoeae (PCR) Not detected (NOT DETECTE) T. vaginalis (PCR) Not detected (NOT DETECTE) Blood Type B Negative Antibody Screen Negative Screen TNP Baby's Blood Type TNP Baby's JACK Not Reportable Doses of RhIg Required 1 Imaging Data Attestation: I personally reviewed and interpreted this imaging study as follows: Radiologist's impression: ITS Impressions Obstetrics Ultrasound 05/08/25 17:09 IMPRESSION: 1. Single live fetus 9 weeks and 5 days in size by ultrasound. heart rate at 178 bpm. 2. Focal subchorionic bleed is noted in the inferior aspect of the sac as mentioned above. Close clinical and ultrasound follow-up are recommended. 3. No adnexal mass or fluid collections are seen.
[2025-05-08] MEDS: SODIUM CHLORIDE 0.9% IV 1,000 ML 999 ML IV CONT (17:18)
[2025-05-08] MEDS: ONDANSETRON INJ 4 MG/2 ML VIAL IV PUSH (17:19)
[2025-05-08] MEDS: ACETAMINOPHEN 500 MG TABLET 1000 MG PO (17:19)
[2025-05-08 17:22] LABS: BEDSIDEPREGUCG Negative (Negative)
--- NOTE | 2025-05-08 17:28 | PC.NURSE ---
Bedside test is positive.
[2025-05-08 17:29] LABS: BEDSIDEPREGUCG Positive (Negative)
[2025-05-08 17:31] LABS: Hematocrit 37.2 % (37.0-47.0); Hemoglobin 12.9 g/dL (12.0-15.0); Immature Granulocyte Percent A 0.3 % (0-0.5); Lymphocytes Absolute Auto 1.80 K/mm3 (0.9-3.2); Mean Corpuscular HGB Conc 34.7 g/dl (32-36); Mean Corpuscular Hemoglobin 32.3 pg (26-34); Mean Corpuscular Volume 93.2 fl (80-100); Nucleated Red Blood Cells Absolute Auto 0.000 K/mm3 (0.0-0.012); Nucleated Red Blood Cells Perc 0.0 % (0.0-0.2); Platelet Count Result 303 k/mm3 (150-375); Red Blood Count 3.99 M/mm3 (4.2-5.4); White Blood Count 14.6 K/mm3 (4.5-10.0)
[2025-05-08 17:39] LABS: Add Urine Microscopic? YES; Appearance Urine Clear (Clear); Glucose Urine UA Negative (Negative); Leukocyte Esterase Ur Negative LEU/UL (Negative); Nitrate Urine Negative (Negative); Non Pathogenic Casts 0-2; Specific Grav Ur 1.024 (1.001-1.035)
[2025-05-08 17:44] LABS: INR 1.1; Prothrombin Time 14.3 Seconds (11.1-14.7)
[2025-05-08 17:45] LABS: Partial Thromboplastin Time 29.9 Seconds (22.3-36.8)
[2025-05-08 17:48] LABS: Alanine Aminotransferase 16 U/L (6-35); Albumin Level 4.2 g/dL (3.5-5.1); Alkaline Phosphatase 68 U/L (38-126); Anion Gap 6 mmol/L (4-12); Aspartate Amino Transferase 26 U/L (14-36); Bilirubin,Total 0.8 mg/dL (0.2-1.3); Blood Urea Nitrogen 7 mg/dL (7-17); Calcium 9.3 mg/dL (8.4-10.2); Carbon Dioxide 24 mmol/L (22-30); Chloride 107 mmol/L (98-107); Estimated CRCL calculation 117 ml/min; Estimated Glomerular Filt Rate > 60; Glucose 92 mg/dL (65-110); Potassium 3.7 mmol/L (3.4-5.0); Sodium 137 mmol/L (137-145); Total Protein 7.7 g/dL (6.3-8.2)
[2025-05-08 18:39] LABS: Trichomonas Vag PCR NOT DETECTED (NOT DETECTE)
[2025-05-08] MEDS: RHO(D) IMMUNE GLOBULIN 300 MCG/2 ML SYRINGE IM (21:03)
--- NOTE | 2025-05-08 21:06 | PC.NURSE ---
ebnitez lot [id number] exp 08/13/28
[2025-05-08 21:13] VITALS: BP 124/78; PULSE 82; RESP 18
== END 2025-05-08 21:20 | disposition home or self-care (01) ==
PROVIDERS: Emergency Provider Registered Nurse; PCP Physician Assistant
DX: O46.8X1 Other antepartum hemorrhage, first trimester (principal)
CPT/HCPCS: 36415; 76801; 76817; 80053; 81001; 81025; 84702; 85025; 85461; 85610; 85730; 86850; 86900; 86901; 87491; 87591; 87661; 90384; 96372; 99284; A9270; J2405; J2790; J7030